=== PATIENT | male | born 1955 | race Caucasian/White ===

== ENCOUNTER 2017-05-27 13:06 | Inpatient (IN) | payer OTHER ==
[~2017-05-27] VITALS: Ht 177.8 cm; Wt 88.6 kg
--- NOTE | ~2017-05-27 | CR7 ---
[facility] A Service of [facility] & [facility] RADIOLOGY TEXT RESULTS PATIENT: JANEL CAMACHO LOCATION: [address] : 53 UNIT #: [id number] AGE: [address]: Eligio Nicholson MD SEX: M ORDER DR: [id number] [facility] [address]. [place], [place] [address] [id number] I MR#: [id number] Acc #: [id number] NAME: JANEL CAMACHO : 1955 SEX: M STUDY DATE/TIME: 05/29/2017 13:36 UNIT: [facility] ROOM: [facility] STUDY DESCRIPTION: CR Abdomen Single AP View Attending Physician: Eligio Nicholson M.D. Ordering Physician: Fred Rodriguez M.D. Primary Care Physician: Rocco Chamberlain M.D. MEDICAL IMAGING REPORT This report is preliminary unless electronic signature is present EXAM Portable KUB HISTORY Gastric distension. Nasogastric decompression. TECHNIQUE A single view of the abdomen was obtained. FINDINGS A Dobbhoff tube is seen coiled in the stomach in satisfactory position. The bowel gas pattern is normal. STAT * RESULT Dictated by... Vin Clark M.D. THIS IS AN ELECTRONICALLY VERIFIED REPORT Vin Clark M.D. at 05/30/2017 3:38 PM IMTIAZ/louis TD: 05/29/2017 14:13 JOB #: [id number] MEDICAL IMAGING REPORT Page 1 of 1 COPY
--- NOTE | ~2017-05-27 | EKG ---
PATIENT: JANEL CAMACHO UNIT #: [id number] Ventricular Rate: 62 BPM Atrial Rate: 62 BPM P-R Interval: 138 ms QRS Duration: 88 ms Q-T Interval: 464 ms QTC Calculation(Bezet): 470 ms P [place]: 10 degrees Calculated R Independence: 23 degrees Calculated T Independence: -36 degrees Diagnosis Line: Normal sinus rhythm Diagnosis Line: Normal ECG Diagnosis Line: When compared with ECG of 30-MAY-2017 06:25, Diagnosis Line: QT has shortened Diagnosis Line: Confirmed by IKE HAQUE MD ([id number]) on Diagnosis Line: 05/31/2017 9:55:39 AM INTERPRETING MD: SHABNAM LAURA
--- NOTE | ~2017-05-27 | EKG ---
PATIENT: JANEL CAMACHO UNIT #: [id number] Ventricular Rate: 61 BPM Atrial Rate: 61 BPM P-R Interval: 140 ms QRS Duration: 92 ms Q-T Interval: 438 ms QTC Calculation(Bezet): 440 ms P [place]: 56 degrees Calculated R [place]: 21 degrees Calculated T [place]: -54 degrees Diagnosis Line: Normal sinus rhythm Diagnosis Line: Low voltage QRS Diagnosis Line: Nonspecific T wave abnormality Diagnosis Line: Abnormal ECG Diagnosis Line: When compared with ECG of 31-MAY-2017 18:45, Diagnosis Line: (unconfirmed) Diagnosis Line: No significant change was found Diagnosis Line: Confirmed by IKE HAQUE MD ([id number]) on Diagnosis Line: 06/03/2017 8:55:01 AM INTERPRETING MD: SHABNAM LAUAR
--- NOTE | ~2017-05-27 | CR71 ---
[facility] A Service of [facility] RADIOLOGY TEXT RESULTS PATIENT: JANEL CAMACHO [facility] : 53 UNIT #: [id number] AGE: [address]: ADRIANE RODRIGUEZ MD SEX: M ORDER DR: [id number] [facility] [address] [place], [place] [address] [id number] I MR#: [id number] Acc #: [id number] NAME: JANEL CAMACHO : 1955 SEX: M STUDY DATE/TIME: 05/27/2017 13:37 UNIT: [facility] ROOM: [facility] STUDY DESCRIPTION: CR Chest Single View Attending Physician: Adriane Rodriguez M.D. Ordering Physician: Kaz Webber M.D. Primary Care Physician: Rocco Chamberlain M.D. MEDICAL IMAGING REPORT This report is preliminary unless electronic signature is present EXAM AP portable chest DATE 05/27/2017 at 13:37 HISTORY 61-year-old male intubated status post cardiac arrest today. COMPARISON None. FINDINGS Right chest wall transcutaneous pacer pad obscures the right mid to upper thorax. Hazy bilateral perihilar interstitial type infiltrates are thought to be present, and there is moderate cardiac enlargement. The endotracheal tube has been placed with tip projecting about 1.3 cm above the level of the kobi. No pneumothorax or pleural effusion is seen. IMPRESSION 1. Moderate generalized cardiac enlargement with faint perihilar interstitial type infiltrates or early interstitial edema. 2. ET tube tip 1.3 cm above the level of the kobi. Dictated by... Ierne Elliott M.D. THIS IS AN ELECTRONICALLY VERIFIED REPORT Irene Elliott M.D. at 05/28/2017 7:08 AM UNRULY/abisai [facility] A Service [facility] RADIOLOGY TEXT RESULTS PATIENT: JANEL CAMACHO [facility] : 53 UNIT #: [id number] AGE: [address]: ADRIANE RODRIGUEZ MD SEX: M ORDER DR: TD: 05/27/2017 23:02 JOB #: [id number] MEDICAL IMAGING REPORT Page 1 of 1 COPY
--- NOTE | ~2017-05-27 | OR ---
Unit #: [id number] #: [id number] Patient: JANEL CAMACHO [id number] [facility] [address]. [place], [place] [address] [id number] I MR#: [id number] NAME: JANEL CAMACHO ROOM: [facility] Date of Procedure: 05/27/2017 Admission Date: 05/27/2017 Surgeon: Charles Rodriguez M.D. : 1955 Attending Physician: Kandi Rodriguez M.D. Primary Care Physician: Rocco Chamberlain M.D. PROCEDURE OPERATIVE NOTE PROCEDURE Right radial arterial line placement with ultrasound guidance. INDICATION FOR PROCEDURE Status post cardiac arrest, needing hypothermia. PREOPERATIVE DIAGNOSIS Ventricular fibrillation arrest. DESCRIPTION OF THE PROCEDURE An informed consent was obtained from the family after explaining the benefit and risk of this procedure. Patient was prepped and positioned appropriately. Then the right arm was cleaned with chlorhexidine, then body drape was applied and, then with the ultrasound guidance, a needle was inserted in the right artery until blood flow was obtained. Then a guidewire was inserted and the needle was removed. Then the catheter was inserted over the guidewire. The catheter was connected to A-line setup and good wave was secured on the monitor. Patient tolerated his procedure well with no immediate complication. Dictated by... Charles Rodriguez M.D. EA/crystal TD: 05/27/2017 17:20 JOB #: [id number] PROCEDURE OPERATIVE NOTE Page 1 of 1 X CHARLES SIMONS MD X PROCEDURE OPERATIVE NOTE
--- NOTE | ~2017-05-27 | CT57 ---
[facility] A Service of [facility] & [facility] RADIOLOGY TEXT RESULTS PATIENT: JANEL CAMACHO LOCATION: [facility] 338-01 : 53 UNIT #: [id number] AGE: [address]: CARMEN LEMUSUJ V SEX: M ORDER DR: [id number] [facility] [address] [place], [place] [address] [id number] I MR#: [id number] Acc #: [id number] NAME: JANEL CAMACHO : 1955 SEX: M STUDY DATE/TIME: 06/02/2017 15:43 UNIT: A U ROOM: [facility] STUDY DESCRIPTION: CT Chest Wo Cont Attending Physician: Eligio Nicholson M.D. Ordering Physician: Muna Braden M.D. Primary Care Physician: Rocco Chamberlain M.D. MEDICAL IMAGING REPORT This report is preliminary unless electronic signature is present EXAM CT chest without contrast, 06/02/2017 HISTORY Acute respiratory failure. Short of air times 06/02/2017. Cardiac arrest 05/27/2017. Soreness in chest. Staph pneumonia. TECHNIQUE This CT exam was performed with one or more of the following radiation dose reduction techniques: automatic exposure control, adjustment of mA and/or kV according to patient size, and iterative reconstruction. FINDINGS CT chest performed without administration of intravenous contrast. No prior CTs of chest for comparison. Thyroid unremarkable. No axillary adenopathy. No mediastinal or hilar adenopathy. There is a right internal jugular approach central venous catheter which terminates in the superior vena cava. There are coronary arterial calcifications. Heart upper limits of normal in size. Small bilateral pleural effusions probably slightly greater on the right than left. Probably not drainable fluid collections. Visualized portions of the liver, gallbladder, spleen, pancreas, adrenal glands notable for hypodense 2.4 cm x 1.8 cm right adrenal nodule. Favored to be adenoma. Visualized upper renal poles unremarkable. No upper abdominal adenopathy. The esophagus, stomach, visualized segments of small bowel and colon notable for uncomplicated transverse colon diverticulosis. Pulmonary parenchyma shows evidence of underlying centrilobular emphysema. Dependent airspace disease in the bilateral lower lobes. More extensive on the left than right. Components of atelectasis and pneumonia may be present. Dependent atelectasis in the left inferior lingula segment. No suspicious nodule. Calcified granuloma in the right middle lobe lateral STS. [facility] A Service of [facility] & [facility] RADIOLOGY TEXT RESULTS PATIENT: JANEL CAMACHO LOCATION: [facility] 338-01 : 53 UNIT #: [id number] AGE: [address]: YASEMIN LEMUS V SEX: M ORDER DR: carlos. Unopacified vascular structures appear normal in overall caliber. Scattered systemic arterial calcifications. The bony structures show right anterior second, third, fourth, fifth, sixth rib fractures, some of which are very minimally displaced. There are left anterior third, fourth, fifth, sixth rib fractures, some of which are very minimally displaced. There is some haziness in the subcutaneous fat of the anterior chest superficial to the sternum. There are also left paracentral anterior fifth costochondral fracture and bilateral sixth anterior costochondral fractures nondisplaced. Haziness and stranding in the subcutaneous fat superficial to the sternum. The patient has a history of prior cardiac arrest 05/27/2017. Correlate with any history of cardiopulmonary resuscitation. Above pattern of bony and soft tissue findings suggests resuscitative chest compressions. IMPRESSION 1. Abnormal examination. Please see the complete dictation above for full details. Bibasilar airspace disease in the dependent lower lobes, left greater than right probably reflecting combination of atelectasis and bibasilar pneumonia. There are some very minimal subpleural patchy densities in the anterior mid to inferior left upper lobe which are nonspecific and may represent areas of minimal atelectasis or minimal pneumonitis. 2. Bilateral small pleural effusions. Probably not drainable fluid collections. Probably greater on the right than left. 3. Underlying emphysema. 4. No suspicious nodule and no adenopathy. 5. Multiple bilateral anterior rib fractures and costochondral fractures. See locations in body of report above. Associated subcutaneous fat stranding and haziness superficial to the anterior bony thorax. Patient has history of cardiac arrest. Findings most consistent with sequelae of cardiopulmonary resuscitation. Correlate clinically. 6. Transverse colon uncomplicated diverticulosis. 7. A 2.4 cm hypodense right adrenal nodule most consistent with adenoma. If it would assist in patient management, this could best be fully characterized with adrenal protocol MRI or CT on an elective basis. Dictated by... Isaías Nick M.D. THIS IS AN ELECTRONICALLY VERIFIED REPORT Isaías Nick M.D. at 06/03/2017 2:44 PM MARTIN/abisai TD: 06/03/2017 00:20 JOB #: [id number] MEDICAL IMAGING REPORT [facility] A Service of [facility] RADIOLOGY TEXT RESULTS PATIENT: JANEL CAMACHO LOCATION: [facility] 338-01 : 53 UNIT #: [id number] AGE: [address]: YASEMIN LEMUS V SEX: M ORDER DR: Page 1 of 1 COPY
--- NOTE | ~2017-05-27 | EKG ---
PATIENT: JANEL CAMACHO UNIT #: [id number] Ventricular Rate: 69 BPM Atrial Rate: 69 BPM P-R Interval: 142 ms QRS Duration: 88 ms Q-T Interval: 522 ms QTC Calculation(Bezet): 559 ms P [place]: 57 degrees Calculated R [place]: 23 degrees Diagnosis Line: Normal sinus rhythm Diagnosis Line: Low voltage QRS Diagnosis Line: Nonspecific ST and T wave abnormality Diagnosis Line: Prolonged QT Diagnosis Line: Abnormal ECG Diagnosis Line: When compared with ECG of 27-MAY-2017 17:55, Diagnosis Line: Premature ventricular complexes are no longer Diagnosis Line: Present Diagnosis Line: QT has lengthened Diagnosis Line: Confirmed by DONNY MCKINLEY MD ([id number]) on Diagnosis Line: 05/30/2017 3:53:16 PM INTERPRETING MD: RAFAEL
--- NOTE | ~2017-05-27 | FU ---
[facility] Nutrition Therapy DATE: 06/03/17 Patient: JANEL CAMACHO Physician: HOLLIS Address: [address] [place] [address] Room/Bed: [address] [place] [address], Zip: [place] [address] Admit Date: 05/27/17 Date of : 51 Height: 5 10 Weight: 216 98.4 NUTRITION MONITORING/FOLLOW-UP: Reason: Follow up Anthropometrics: Wt 06/03: 98.4 kg Labs: K+ 3.4 Cl- 92 BUN 28 Creat 1.8 Accuchecks 113-168 GFR 38.9 Meds: Levemir, KCl, lipitor, zofran, novolog, senokot, bumex, protonix I&O's: 82884/5804, last BM 06/02 Skin: no changes noted, no edema noted Diet: Heart healthy Assessment: Chart reviewed, events noted. Pt was extubated 06/01 and was transfered to tele floor. DHT was discontinued, and the pt is ordered a heart healthy diet. RD spoke with the pt at bedside. Pt is tolerating his diet, and consuming at least 50% of meals per his report. RD explained the pt's diet order, and the pt denied having any questions at this time. Please see recommendations below. Previous nutrition Dx no longer relevant, as the pt is now ordered a PO diet New Dx: Impaired glycemic control RT clinical condition AEB HgbA1C 5.7 on 05/28, accuchecks 113-168. Intervention: 1. Add 60 gm consistent carbohydrate diet restriction Monitoring, Evaluation and Goals: 1. EN- NO LONGER RELEVANT (TF D/C'D) 2. Improve labs; electrolytes, glucose- IN PROGRESS NEW GOALS: 1. Oral intake; consume 50-100% of meals Recommendations: 1. Add 60 gram consistent carbohydrate diet restriction to promote glycemic control. 2. Encourage adequate nutritional intake as needed. [facility] Nutrition Therapy DATE: 06/03/17 Patient: JANEL CAMACHO Physician: HOLLIS Address: [address] [place] [address] Room/Bed: [address] [place] [address], Zip: [place] [address] Admit Date: 05/27/17 Date of : [birth year] Height: 5 10 Weight: 216 98.4 Status: Pt is at mild nutritional risk. Respectfully, BREA PAULA RD, LD Food and Nutrition[facility] Services [facility] cc: client file
--- NOTE | ~2017-05-27 | CR72 ---
[facility] A Service of [facility] & [facility] RADIOLOGY TEXT RESULTS PATIENT: JANEL CAMACHO LOCATION: [address] : 53 UNIT #: [id number] AGE: [address]: Eligio Nicholson MD SEX: M ORDER DR: [id number] [facility] [address]. [place], [place] [address] [id number] I MR#: [id number] Acc #: [id number] NAME: JANEL CAMACHO : 1955 SEX: M STUDY DATE/TIME: 05/30/2017 6:19 UNIT: [facility] ROOM: [facility] STUDY DESCRIPTION: CR Chest Single View Portable Attending Physician: Eligio Nicholson M.D. Ordering Physician: Fred Rodriguez M.D. Primary Care Physician: Rocco Chamberlain M.D. MEDICAL IMAGING REPORT This report is preliminary unless electronic signature is present EXAM Frontal chest 05/30/2017 INDICATION Respiratory failure in a 62-year-old male. Status post cardiac arrest. Symptoms 3 days. History of prostatic and skin cancer and tobacco abuse. COPD. TECHNIQUE AND COMPARISON Frontal chest compared with 05/29/2017. FINDINGS ET tube tip in good position above the kobi. Right-sided central line unchanged. Enteric tube tip is at the level of the mid body stomach. The heart is enlarged but stable. Lung volumes are low but inspiratory result has improved slightly. Probable trace left effusion and left base atelectasis. No pneumothorax. IMPRESSION 1. Tubes and lines are in satisfactory position. Plfiw-sb-agqil left effusion and probable left base atelectasis. No pneumothorax. 2. Since the prior study, there has been interval removal of what appeared to represent a nasogastric tube and interval placement of a Dobbhoff-type feeding tube. Dictated by... Miko Valle M.D. THIS IS AN ELECTRONICALLY VERIFIED REPORT Miko Valle M.D. at 05/30/2017 5:12 PM KATHIE/yomi [facility] A Service of [facility] & [facility] RADIOLOGY TEXT RESULTS PATIENT: JANEL CAMACHO LOCATION: [facility]22 : 53 UNIT #: [id number] AGE: [address]: Eligio Nicholson MD SEX: M ORDER DR: TD: 05/30/2017 08:28 JOB #: [id number] MEDICAL IMAGING REPORT Page 1 of 1 COPY
--- NOTE | ~2017-05-27 | CR72 ---
[facility] A Service of [facility] RADIOLOGY TEXT RESULTS PATIENT: JANEL CAMACHO LOCATION: [facility] : 53 UNIT #: [id number] AGE: [address]: Eligio Nicholson MD SEX: M ORDER DR: [id number] [facility] [address] [place], [place] [address] [id number] I MR#: [id number] Acc #: [id number] NAME: JANEL CAMACHO : 1955 SEX: M STUDY DATE/TIME: 05/29/2017 13:33 UNIT: [facility] ROOM: [facility] STUDY DESCRIPTION: CR Chest Single View Portable Attending Physician: Eligio Nicholson M.D. Ordering Physician: Fred Rodriguez M.D. Primary Care Physician: Rocco Chamberlain M.D. MEDICAL IMAGING REPORT This report is preliminary unless electronic signature is present EXAM Portable chest HISTORY Respiratory failure TECHNIQUE Single view chest was obtained. COMPARISON 05/29/2017 FINDINGS Since the previous examination no new infiltrates are seen. The heart and mediastinum are stable. A Dobbhoff tube is seen over the distal esophagus. A nasogastric tube is seen coiled in the stomach. The endotracheal tube tip is in good position. IMPRESSION Dobbhoff tube in the esophagus. No new infiltrates are seen since the previous examination earlier in the day. STAT * RESULT Dictated by... Vin Clark M.D. THIS IS AN ELECTRONICALLY VERIFIED REPORT Vin Clark M.D. at 05/30/2017 3:38 PM IMTIAZ/minoo TD: 05/29/2017 14:10 [facility] A Service of [facility] RADIOLOGY TEXT RESULTS PATIENT: JANEL CAMACHO LOCATION: [facility] : 53 UNIT #: [id number] AGE: [address]: Eligio Nicholson MD SEX: M ORDER DR: JOB #: [id number] MEDICAL IMAGING REPORT Page 1 of 1 COPY
--- NOTE | ~2017-05-27 | CR72 ---
[facility] A Service of [facility] & [facility] RADIOLOGY TEXT RESULTS PATIENT: JANEL CAMACHO LOCATION: [address] : 53 UNIT #: [id number] AGE: [address]: Eligio Nicholson MD SEX: M ORDER DR: [id number] [facility] [address] [facility]. [place], [place] [address] [id number] I MR#: [id number] Acc #: [id number] NAME: JANEL CAMACHO : 1955 SEX: M STUDY DATE/TIME: 05/31/2017 6:00 UNIT: [facility] ROOM: [facility] STUDY DESCRIPTION: CR Chest Single View Portable Attending Physician: Eligio Nicholson M.D. Ordering Physician: Fred Rodriguez M.D. Primary Care Physician: Rocco Chamberlain M.D. MEDICAL IMAGING REPORT This report is preliminary unless electronic signature is present EXAM Portable chest 05/31/2017 HISTORY 62-year-old male with shortness of air and respiratory failure for 4 days. COMPARISON Chest 05/30/2017. FINDINGS Frontal chest demonstrates tubes and lines in stable position. No pneumothorax. Stable trace left pleural effusion and minimal left basilar atelectasis. No new pulmonary infiltrates. Heart size and mediastinum are stable. IMPRESSION 1. Tubes and lines are stable. No pneumothorax. 2. Stable trace left pleural effusion and minimal left basilar atelectasis. Dictated by... Kwasi Paz M.D. THIS IS AN ELECTRONICALLY VERIFIED REPORT Kwasi Paz M.D. at 05/31/2017 12:15 PM AV/louis TD: 05/31/2017 07:16 JOB #: [id number] MEDICAL IMAGING REPORT Page 1 of 1 COPY
--- NOTE | ~2017-05-27 | TOC ---
Unit #: [id number] #: [id number] Patient: JANEL CAMACHO [id number] [facility] [address]. [place], [place] [address] [id number] I MR#: [id number] NAME: JANEL CAMACHO ROOM: [facility] Age: 62 Sex: M Admission Date: 05/27/2017 : 1955 Attending Physician: Eligio Nicholson M.D. Primary Care Physician: Rocco Chamberlain M.D. TRANSFER OF CARE SUMMARY DISCHARGE DIAGNOSES AT TIME OF DICTATION 1. Ventricular tachycardia arrest. 2. Coronary artery disease, status post three stents to the right coronary artery. 3. Aspiration pneumonia. 4. Septic shock. 5. Chronic obstructive pulmonary disease. 6. Acute kidney injury from acute tubular necrosis. 7. Hypoxic respiratory failure. 8. Metabolic acidosis. HOSPITAL COURSE Patient is a 62-year-old male who was brought to [facility] emergency department after a witnessed cardiac arrest. CPR was done immediately by family, after which point the fire department arrived and participated until EMS arrived. The patient reportedly received multiple shocks prior to reaching the emergency department. The patient was ultimately admitted for the above after being started on hypothermia protocol in the emergency department. The patient's ventilator was managed by Pulmonary and plans were made to take the patient for cardiac cath once he was extubated. He was noted to have some mild acute kidney injury upon presentation which worsened over the next several days. The patient was in process of being weaned as planned prior to cath when he began to have chest pain and cardiac changes visible on telemetry. As a result the wean was stopped and the patient was resedated. It was then decided to take the patient cath prior to weaning despite some mild kidney injury. At cath, patient was noted to have multiple areas of 90+% stenosis of the RCA which were stented x3. After this, the patient was able to be weaned from the ventilator without incident the following day. Over the course of the hospitalization, the patient was also noted to have pneumonia and the patient's procalcitonin came back at 7.6. Ultimately sputum cultures have grown methicillin-susceptible Staph aureus and the patient has now completed a course of Zosyn. At this time the patient is awake, alert and feeling well. He is being transferred from ICU to a monitored bed at this time. His creatinine remains mildly elevated at 2.1. His urine output has dramatically increased, at the time of this dictation having produced over 10 L of urine today. I anticipate the patient's serum creatinine will begin to Unit #: [id number] #: [id number] Patient: JANEL CAMACHO in short order. Dictated by... Eligio Nicholson M.D. GURINDER/crystal TD: 06/02/2017 19:19 JOB #: [id number] TRANSFER OF CARE SUMMARY Page 1 of 1 X Eligio Nicholson MD X TRANSFER OF CARE SUMMARY
--- NOTE | ~2017-05-27 | A ---
[facility] Nutrition Therapy DATE: 05/28/17 Patient: JANEL CAMACHO Physician: HOLLIS Address: [address] [place] [address] Room/Bed: [address], Zip: [place] [address] Admit Date: 05/27/17 Date of : 51 Height: 5 10 Weight: 217 98.5 NUTRITIONAL ASSESSMENT: REASON: NPO in ICU, intubated Admitting dx: 61 y/o male admitted with cardiac arrest PMH: 2 ppd smoker, 6-8 beers/daily, CAD s/p stent x 2, HTN, HLD, COPD, ANA LUISA, prostate cancer Anthropometrics: Ht: 70", Wt: 98.5 kg, BMI: 30 (stage I obese) Labs: K+ 3.4, glucose 302, POC 260, Creat 1.8, AST 68, ALT 56, A1C 5.7 (WNL), GFR 39.2, triglycerides 539 Meds: Levemir, medium SSI, EPI, fentanyl/versed, Kcl, Lipitor I/O & Bowel function: BM 05/27, NGT in place Skin Integrity: No significant issues, no edema Estimated Nutrition Needs: 8222-1854 kcals/day (17-22 kcals/kg) 79-99 g protein/day (0.8-1.0 g/kg) Fluids consistent with kcal needs or per MD Assessment: Chart reviewed, events noted. Patient currently intubated, sedated and therapeutically paralyzed on hypothermia protocol, rewarming has not been started yet. He is having bradycardia episodes, on 1 pressor at this time. Hyperglycemia noted- on insulin regimen- does not have hx of DM and A1C is normal. Pt drinks 6-8 beers daily and smokes [address] recs below, will follow hospital course. Dx: Inadequate energy intake r/t nutrition not yet initiated AEB NPO x 1 day, need for EN. Intervention: Initiate enteral nutrition once appropriate, lyte replacement, insulin reg Monitoring, Evaluation and Goals: 1. EN consistent with estimated nutritional needs. 2. Improvement in labs; lytes WNL, glucose < 200, triglycerides < 400. Monitor: Per protocol, criteria to determine if above goals met Recommendations: [facility] Nutrition Therapy DATE: 05/28/17 Patient: JANEL CAMACHO Physician: HOLLIS Address: [address] [place] [address] Room/Bed: [address], Zip: [place] [address] Admit Date: 05/27/17 Date of : [birth year] Height: 5 10 Weight: 217 98.5 1. Once re-warming phase of hypothermia protocol has been initiated and the patient is hemodynamically stable start enteral nutrition with Jevity 1.5 @ 20 ml/hr. Increase rate by 10 ml q 8 hours until goal rate of 60 ml/hr is reached, to provide 1440 ml, 2160 kcals, 92 g protein and 1094 ml water. Free water flushes per MD once at goal rate. 2. Replace lytes prn. 3. Optimize insulin regimen to promote adequate blood glucose control. RD will follow Moderate-severe nutrition risk Respectfully, Britney Herring, SHRADDHA, LD Food and Nutritional Services [facility] cc: client file
--- NOTE | ~2017-05-27 | EKG ---
PATIENT: JNAEL CAMACHO UNIT #: [id number] Ventricular Rate: 64 BPM Atrial Rate: 64 BPM P-R Interval: 142 ms QRS Duration: 88 ms Q-T Interval: 424 ms QTC Calculation(Bezet): 437 ms P [place]: 57 degrees Calculated R [place]: 10 degrees Calculated T [place]: -13 degrees Diagnosis Line: Normal sinus rhythm Diagnosis Line: Low voltage QRS Diagnosis Line: Borderline ECG Diagnosis Line: When compared with ECG of 31-MAY-2017 10:29, Diagnosis Line: Premature ventricular complexes are no longer Diagnosis Line: Present Diagnosis Line: QT has shortened Diagnosis Line: Confirmed by IKE HAQUE MD ([id number]) on Diagnosis Line: 06/03/2017 8:53:11 AM INTERPRETING MD: SHABNAM LAURA
--- NOTE | ~2017-05-27 | EKG ---
PATIENT: JANEL CAMACHO UNIT #: [id number] Ventricular Rate: 81 BPM Atrial Rate: 79 BPM QRS Duration: 152 ms Q-T Interval: 426 ms QTC Calculation(Bezet): 494 ms Calculated R [place]: -80 degrees Calculated T [place]: 84 degrees Diagnosis Line: Wide QRS rhythm with occasional Premature Diagnosis Line: ventricular complexes Diagnosis Line: Left axis deviation Diagnosis Line: Right bundle branch block Diagnosis Line: Inferior infarct , age undetermined Diagnosis Line: Abnormal ECG Diagnosis Line: No previous ECGs available Diagnosis Line: Confirmed by KRISTAN VENEGAS MD ([id number]) on Diagnosis Line: 05/28/2017 5:05:45 PM INTERPRETING MD: THEO LAURA
--- NOTE | ~2017-05-27 | CO ---
Unit #: [id number] #: [id number] Patient: JANEL CAMACHO [id number] [facility]. [place], [place] [address] [id number] MR#: [id number] NAME: JANEL CAMACHO ROOM: Age: 61 Sex: M Admission Date: 05/27/2017 : 1955 Attending Physician: Kaz Webber M.D. Primary Care Physician: Rocco Chamberlain M.D. Consultation Date: 05/27/2017 CONSULTATION REPORT REASON FOR CONSULT ICU management. HISTORY OF PRESENT ILLNESS This is a 61-year-old male with past medical history significant for coronary artery disease, hypertension, obstructive sleep apnea, morbid obesity who presented to the emergency room as a cardiac arrest after he had a witnessed arrest at home. Per his , patient was at his baseline with no new complaint; however, patient normally does not complain even if there is something going on. stated that he went to the bedroom to lay down which is something normal for him and then all of a sudden his granddaughter came out stating that he fell and he was not responsive. The immediately called EMS and she started CPR with hsrjk-iw-[id number] ventilation. EMS arrived within probably 15 minutes and found patient to be in ventricular fibrillation arrest. Patient was resuscitated and shocked 10-12 times between the ambulance and in the emergency room. The patient was difficult intubation and was intubated by the ER physician. Currently, he is not following commands, but he is moving some of his extremities. Patient has prostate cancer and he finished his radiation therapy 10 months ago. He follows with his doctors once a year. Per his family, he had a stress test that was normal a year ago. Patient had a left heart cath many years ago and had two stents placed, but he never had a CABG. PAST MEDICAL HISTORY 1. COPD. 2. Coronary artery disease. 3. Hypertension. 4. Obstructive sleep apnea. 5. Prostate cancer. PAST SURGICAL HISTORY 1. Sinus surgery. 2. Stent placement. ALLERGIES No known drug allergies. SOCIAL HISTORY Patient smokes at least two packs per day. He smokes for probably 30 years. He drinks six to eight beers daily, but no history of DTs. No history of drug abuse. FAMILY HISTORY Unit #: [id number] #: [id number] Patient: JANEL CAMACHO Skin cancer. REVIEW OF SYSTEMS Unable to obtain from the patient. PHYSICAL EXAMINATION GENERAL: The patient is ill-appearing on the ventilator. HEENT: Atraumatic, normocephalic. Pupils are 4 mm and reactive. Patient has gag and cough reflexes. NECK: Supple. No JVD. No lymphadenopathy. CHEST: Decreased breath sounds bilaterally with diffuse wheezing. HEART: S1, S2. No murmur, gallops, or rubs. ABDOMEN: Distended but nontender. EXTREMITIES: No edema or cyanosis. SKIN: No rashes. CENTRAL NERVOUS SYSTEM: Patient is on the ventilator. He is moving his upper extremity to painful stimuli, but he is not following commands. DIAGNOSTIC STUDIES LABORATORY: Creatinine 1.4, potassium 3.1, CO2 of 20. White blood count 9.2, platelets 118,000. IMAGING: Chest x-ray: Bilateral infiltrate. ASSESSMENT 1. Acute hypoxic respiratory failure. 2. Status post ventricular fibrillation/ventricular tachycardia cardiac arrest. 3. Acute kidney injury. 4. Chronic obstructive pulmonary disease. 5. Hypertension. 6. Coronary artery disease. PLAN 1. Patient is critical. Will continue vent support and adjust setting as needed. 2. Will obtain STAT CT head and if it is normal, we will enroll patient in hyperthermia protocol. 3. Zosyn for possible aspiration pneumonia. 4. Continue IV hydration and obtain lactic acid. 5. Full treatment Lovenox dose. 6. NPO for now but will re-assess for tube feed in the morning. 7. Gastrointestinal prophylaxis. Critical care time spent on this patient was 45 minutes. Dictated by... Debi Urbina TD: 05/27/2017 15:22 JOB #: [id number] Unit #: [id number] #: [id number] Patient: JANEL CAMACHO CONSULTATION REPORT Page 1 of 1 X CHARLES SIMONS MD CONSULTATION REPORT
--- NOTE | ~2017-05-27 | HP ---
Unit #: [id number] #: [id number] Patient: JANEL CAMACHO [id number] [address] [id number] I MR#: [id number] NAME: JANEL CAMACHO ROOM: CICCU3 Age: 61 Sex: M Admission Date: 05/27/2017 : 1955 Attending Physician: Adriane Rodriguez M.D. Primary Care Physician: Rocco Chamberlain M.D. HISTORY AND PHYSICAL CHIEF COMPLAINT Cardiac arrest. HISTORY OF PRESENT ILLNESS The patient is a 61-year-old white male with a past medical history of coronary artery disease, status post stents x2, hypertension, hyperlipidemia, obstructive sleep apnea, COPD, prostate cancer, had a witnessed arrest early this morning. The patient was going to the bed for a nap at 11:30. The patient had a fall. The patient was becoming very confused and unresponsive. The patient was started on CPR by the [facility] and the fire department came in and continued the CPR until the ambulance came. The patient was found to be in v-fib/v-tach. The patient received multiple shocks, total of 11 and patient was on and off for v-fib with tach for the last two hours and patient achieved ROSC. Patient is being admitted for the above reasons. Patient is unable to provide any history and the family history is obtained by the patient's family at the bedside. No further history is available. PAST MEDICAL HISTORY History of a COPD, obstructive sleep apnea, coronary artery disease, hypertension, hyperlipidemia and history of prostate cancer. PAST SURGICAL HISTORY Angioplasty, stents and skin carcinoma removed. HOME MEDICATION Patient is on Lovaza, ramipril, Diovan, Crestor, metoprolol, aspirin, Tylenol with codeine. ALLERGIES No known drug allergies. SOCIAL HISTORY Lives with the family, smokes one to one and a half packs per day, denies any alcohol or any illicit drug abuse. FAMILY HISTORY Positive for a skin cancer. REVIEW OF SYMPTOMS Unable to obtain as patient is being intubated. PHYSICAL EXAMINATION Unit #: [id number] #: [id number] Patient: JANEL CAMACHO GENERAL APPEARANCE: On examination the patient is lying on a bed, not in acute distress. Patient is ill-appearing, on the ventilator. VITAL SIGNS: Temperature is 98.5, pulse 177, respiratory rate is 20, blood pressure 145/90, sating 99% on vent. HEENT: Head atraumatic/normocephalic. Pupils constricted. Minimal reaction . NECK: Status post orotracheal intubation. LUNGS: Decreased air entry at the bases. Positive for wheezing and rhonchi. HEART: Regular rhythm, tachycardic. ABDOMEN: Distended. EXTREMITIES: No cyanosis. No clubbing. NEUROLOGIC: Unable to assess. The patient is on vent and sedation. DIAGNOSTIC STUDIES LABORATORY DATA: WBC 9.2, hemoglobin 15.8, hematocrit 47.3, platelets 118. UA shows 3+ protein and urine WBC 10 and 25 to 50 glucose. Sodium 140, potassium 3.1, chloride 104, bicarb 20, glucose 366, creatinine 1.5, AST 68, ALT 56. INR is 1. Troponin less than 0.05. Urine drug screen is negative. ABG shows pH of 7.1, pCO2 46, pO2 101, bicarb 16.1. CARDIOPULMONARY: EKG shows wide complex QRS rhythm with the PVCs, right bundle-branch block and left axis deviation. ASSESSMENT 1. Status post witnessed cardiac arrest. 2. Acute hypoxic respiratory failure. 3. Status post ventricular fibrillation/ventricular tachycardia cardiac arrest. 4. Acute kidney injury. 5. Chronic obstructive pulmonary disease. 6. Septic shock. PLAN Plan to admit the patient to the inpatient with the telemetry. Continue with the weaning protocol. Check the CT of the head and if the CT of the head is negative patient will be on the hypothermia protocol. Continue IV antibiotics. Check the lactic acid. Patient has a poor prognosis. Follow with the cardiology and critical care. Continue with the septic shock protocol and further recommendations will follow as more lab results are available. Dictated by Debi Casey TD: 05/27/2017 17:27 JOB #: [id number] Unit #: [id number] #: [id number] Patient: JANEL CAMACHO HISTORY AND PHYSICAL Page 1 of 1 X ADRIANE RODRIGUEZ MD X HISTORY AND PHYSICAL
--- NOTE | ~2017-05-27 | FU ---
[facility] Nutrition Therapy DATE: 05/30/17 Patient: JANEL CAMACHO Physician: HOLLIS Address: [address] [place] [address] Room/Bed: [address], Zip: [place] [address] Admit Date: 05/27/17 Date of : [birth year] Height: 5 10 Weight: 222 101 NUTRITION MONITORING/FOLLOW-UP: Reason: Enteral nutrition follow-up 61 y/o male admitted for cardiac arrest Anthropometrics: ht: 5'10" wt: 222# (101 kg) BMI 31 Labs: Glu 169, Accuchecks 54-207, Creat 2.1, a++ 7.0, Alb 2.8, AST 149, ALT 131, GFR 32.3 Meds: versed, fentanyl, dopamine, levemir, zosyn, KCl, Dextrose 5%, lipitor, lovenox, novolog I&O's: 5138/1630. BM 05/27 Skin: No issues, no edema. Estimated Nutrition Needs: 4862-3910 kcal (17-22 kcal/kg) 76-99 g protein (0.8-1.0 g/kg) Fluids consistent with kcal needs or per MD Assessment: Chart reviewed, events noted. Pt continues to be intubated and unresponsive. Pt has been assesed by AKIKO. The pt has began to receive enteral nutrition support of Jevity 1.5 @ 40 mL (382 mL x past 24 hours, 26% goal volume). Pt's weight has remained stable at this time. RD will continue to follow. Dx: Inadequate energy intake r/t nutrition not initiated yet AEB NPO x 1 day, need for EN -RESOLVED New Dx: Inadequate energy intake r/t enteral nutrition not at goal AEB pt receiving 26% goal volume Intervention: 1. Enteral nutrition Monitoring, Evaluation and Goals: 1. EN consistent with estimated nutritional needs -NOT MET/IN PROGRESS 2. Improvement in labs; lytes WNL, glucose <200, trig <400 -IN PROGRESS, IMPROVING Recommendations: 1. Increase enteral nutrition support of Jevity 1.5 by 10 mL q 8 hours to goal rate of 60 mL/hr x 24 hours. This provides 1440 mL, 2160 kcal, 92 g protein, and 1094 mL water. free [facility] Nutrition Therapy DATE: 05/30/17 Patient: JANEL CAMACHO Physician: HOLLIS Address: [address] [place] [address] Room/Bed: [address], Zip: [place] [address] Admit Date: 05/27/17 Date of : [birth year] Height: 5 10 Weight: 222 101 water flushes per MD once at goal rate. 2. Continue to optimize insulin to promote adequate blood glucose control. RD will f/u per protocol as pt is at moderate nutritional risk. Respectfully, Shama Winter, Cutter Head Sharpener Britney Herring RD, LD Food and Nutritional Services [facility] cc: client file
--- NOTE | ~2017-05-27 | CT71 ---
[facility] A Service of [facility] RADIOLOGY TEXT RESULTS PATIENT: JAENL CAMACHO LOCATION: [facility] : [birth year] UNIT #: [id number] AGE: [address]: Eligio Nicholson MD SEX: M ORDER DR: [id number] [facility]. [place], [place] [address] [id number] I MR#: [id number] Acc #: [id number] NAME: JANEL CAMACHO : 1955 SEX: M STUDY DATE/TIME: 05/27/2017 16:23 UNIT: [facility] ROOM: [facility] STUDY DESCRIPTION: CT Head Wo Contrast Attending Physician: Eligio Nicholson M.D. Ordering Physician: Kaz Webber M.D. Primary Care Physician: Rocco Chamberlain M.D. MEDICAL IMAGING REPORT This report is preliminary unless electronic signature is present EXAM CT head without contrast 05/27/2017 HISTORY 61-year-old male with altered mental status today. Unresponsive. Status post cardiac arrest. Comparison none. TECHNIQUE Routine unenhanced axial images performed through the brain. This CT exam was performed with one or more of the following radiation dose reduction techniques: automatic exposure control, adjustment of mA and/or kV according to patient size, and iterative reconstruction. FINDINGS No hemorrhage, acute infarction, mass lesion, or abnormal extraaxial fluid collection. No midline shift or focal mass effect. Ventricular system normal in size and configuration. No acute bony abnormality. Visualized paranasal sinuses and mastoid air cells are clear. IMPRESSION No acute intracranial abnormality. Dictated by... Kwasi Paz M.D. THIS IS AN ELECTRONICALLY VERIFIED REPORT Kwasi Paz M.D. at 05/28/2017 11:47 AM AV/milagros TD: 05/28/2017 08:20 JOB #: [id number] [facility] A Service [facility] RADIOLOGY TEXT RESULTS PATIENT: JANEL CAMACHO LOCATION: [facility] : 53 UNIT #: [id number] AGE: [address]: Eligio Nicholson MD SEX: M ORDER DR: MEDICAL IMAGING REPORT Page 1 of 1 COPY
--- NOTE | ~2017-05-27 | EKG ---
PATIENT: JANEL CAMACHO UNIT #: [id number] Ventricular Rate: 97 BPM Atrial Rate: 97 BPM P-R Interval: 156 ms QRS Duration: 98 ms Q-T Interval: 378 ms QTC Calculation(Bezet): 480 ms P [place]: 62 degrees Calculated R [place]: 29 degrees Calculated T [place]: -115 degrees Diagnosis Line: Sinus rhythm with occasional Premature ventricular Diagnosis Line: complexes Diagnosis Line: ST and T wave abnormality, consider inferior Diagnosis Line: ischemia Diagnosis Line: Prolonged QT Diagnosis Line: Abnormal ECG Diagnosis Line: Diagnosis Line: Confirmed by KRISTAN VENEGAS MD ([id number]) on Diagnosis Line: 05/28/2017 5:07:14 PM INTERPRETING MD: THEO LAURA
--- NOTE | ~2017-05-27 | CR72 ---
[facility] A Service of [facility] RADIOLOGY TEXT RESULTS PATIENT: JANEL CAMACHO LOCATION: [address] : [birth year] UNIT #: [id number] AGE: [address]: Eligio Nicholson MD SEX: M ORDER DR: [id number] [facility] [address] [place], [place] [address] [id number] I MR#: [id number] Acc #: [id number] NAME: JANEL CAMACHO : 1955 SEX: M STUDY DATE/TIME: 05/27/2017 14:38 UNIT: [facility] ROOM: [facility] STUDY DESCRIPTION: CR Chest Single View Portable Attending Physician: Kandi Rodriguez M.D. Ordering Physician: Kaz Webber M.D. Primary Care Physician: Rocco Chamberlain M.D. MEDICAL IMAGING REPORT This report is preliminary unless electronic signature is present EXAM Portable chest x-ray 05/27/2017 HISTORY Post central line. FINDINGS AP radiograph of the chest is presented. Comparison from earlier on same date. Interval placement of right internal jugular central venous catheter which terminates in superior vena cava. Endotracheal tube terminates 2.5 cm above kobi. Stable mild cardiac enlargement. Lung volumes improved. Decreased central bronchovascular crowding. Decreased interstitial and airspace densities in perihilar regions extending toward the periphery. The parenchymal findings are more pronounced on left than right. These may reflect components of both bilateral perihilar pneumonia and central edema. No pleural effusion or pneumothorax. No suspicious nodule. Continued followup to resolution recommended. Dictated by... Isaías Nick M.D. THIS IS AN ELECTRONICALLY VERIFIED REPORT Isaías Nick M.D. at 05/28/2017 6:52 PM MARTIN/louis TD: 05/28/2017 07:00 JOB #: [id number] MEDICAL IMAGING REPORT Page 1 of 1 COPY
--- NOTE | ~2017-05-27 | CR72 ---
[facility] A Service of [facility] RADIOLOGY TEXT RESULTS PATIENT: JANEL CAMACHO LOCATION: [facility] : 53 UNIT #: [id number] AGE: [address]: Eligio Nicholson MD SEX: M ORDER DR: [id number] [facility] [address] [place], [place] [address] [id number] I MR#: [id number] Acc #: [id number] NAME: JANEL CAMACHO : 1955 SEX: M STUDY DATE/TIME: 06/01/2017 5:12 UNIT: [facility] ROOM: [facility] STUDY DESCRIPTION: CR Chest Single View Portable Attending Physician: Eligio Nicholson M.D. Ordering Physician: Fred Rodriguez M.D. Primary Care Physician: Rocco Chamberlain M.D. MEDICAL IMAGING REPORT This report is preliminary unless electronic signature is present EXAMINATION AP portable chest. DATE 06/01/2017 at 05:12. HISTORY Shortness breath with respiratory failure, weakness. Symptoms began 05/27/2017. Additional history of atrial fibrillation, prostate cancer. Hypertension. COMPARISON AP portable chest, 05/31/2017, at 06:00. FINDINGS Small left pleural effusion with mild left basilar atelectasis without significant change. Right lung appears clear. Heart size is upper limits of normal but stable. ET tube, enteric tube, right IJ central line appear unchanged. No pneumothorax is visible. IMPRESSION 1. Small left pleural effusion with probable mild left basilar atelectasis, stable. 2. Supporting lines and tubes appear unchanged. 3. No significant change from 05/31/2017. Dictated by... Irene Elliott M.D. THIS IS AN ELECTRONICALLY VERIFIED REPORT Irene Elliott M.D. at 06/01/2017 9:41 PM [facility] A Service of [facility] RADIOLOGY TEXT RESULTS PATIENT: JANEL CAMACHO LOCATION: [facility] : 53 UNIT #: [id number] AGE: [address]: Eligio Nicholson MD SEX: M ORDER DR: TD: 06/01/2017 20:39 JOB #: [id number] MEDICAL IMAGING REPORT Page 1 of 1 COPY
--- NOTE | ~2017-05-27 | CO ---
Unit #: [id number] #: [id number] Patient: JANEL CAMACHO [id number] [id number] [facility] [place] [facility]. [place], [place] [address] [id number] I MR#: [id number] NAME: JANEL CAMACHO ROOM: CIC3 Age: 62 Sex: M Admission Date: 05/27/2017 : 1955 Attending Physician: Eligio Nicholson M.D. Primary Care Physician: Rocco Chamberlain M.D. Consultation Date: 05/27/2017 CONSULTATION REPORT REASON FOR CONSULTATION Status post cardiac arrest. HISTORY OF PRESENT ILLNESS This is a 61-year-old male with a prior history of coronary artery disease, status post stents x2. He is a patient of Dr. Conrad. He also has a history of hypertension, hyperlipidemia, obstructive sleep apnea, COPD, and prostate cancer. He is currently intubated and unresponsive on the vent. He is unable to answer questions. The majority of this information was obtained from chart review and per his family. According to his , he went to lay down. The family heard a loud noise and went to check on him. He was lying on the ground, gurgling, and struggling to breathe. His CPR and EMS was called. When EMS arrived, he was shocked 11 times prior to his arrival in ER. He was in VFib and V-tach off and on for approximately 2 hours. In the ER, return of spontaneous circulation was achieved. Currently, he is on an amiodarone drip and intubated. CT of the head was also pending and then hypothermia will be started. PAST MEDICAL HISTORY 1. Coronary artery disease, status post stents x2, details are currently unavailable. 2. Hypertension. 3. Hyperlipidemia. 4. Obstructive sleep apnea. 5. COPD. 6. Prostate cancer, finished radiation treatment in October 2016. 7. Stress test in 2016 reportedly normal (those results are not currently available). PAST SURGICAL HISTORY 1. Cardiac cath with angioplasty and stents. 2. Skin cancer removed. SOCIAL HISTORY The patient lives with his . He smokes 1 pack per day for 30 years. According to his , he drinks 6 to 7 beers per night. She denies illicit drug use. states he is fairly active as they just went camping for the weekend. He was able to hike and ambulate without complaints of chest pain or chest discomfort. ALLERGIES No known drug allergies. Unit #: [id number] #: [id number] Patient: JANEL CAMACHO HOME MEDICATIONS Crestor, ramipril, metoprolol, losartan, aspirin. REVIEW OF SYSTEMS Unable to obtain due to the patient intubated and unresponsive on the vent. PHYSICAL EXAMINATION VITAL SIGNS: Temperature 98.5, heart rate 78, blood pressure 145/92, 107/77, O2 saturation 99%. GENERAL: A 61-year-old male, lying in bed, in no acute distress. He is ill appearing on the ventilator. HEENT: Head is atraumatic and normocephalic. Pupils are constricted. NECK: Supple. Trachea is midline. Negative for JVD. LUNGS: Clear, decreased in bases. Nonlabored respirations on the ventilator. HEART: S1, S2. Regular rate and rhythm. No murmurs, rubs, or gallops. ABDOMEN: Soft, nontender, nondistended. EXTREMITIES: Pulses are palpable. Nail beds are pale. No edema. NEUROLOGIC: Intubated and unresponsive. Status post arrest. DIAGNOSTIC STUDIES LABORATORY RESULTS: Sodium 140, potassium 3.1, chloride 104, BUN 19, creatinine 1.5, glucose 366. Hemoglobin 15.8, hematocrit 47.3, white blood cell count 9.2, platelets 118. AST 68, ALT 56, alkaline phosphatase 43. Nvwbs-sk-faff troponin less than 0.05. Urine tox screen negative. IMAGING STUDIES: Chest x-ray shows moderate generalized cardiac enlargement with faint perihilar interstitial type infiltrate or early interstitial edema. CT of the head is pending. CARDIOVASCULAR STUDIES: EKG shows sinus rhythm with right bundle-branch block and occasional PVCs, ventricular rate of 81. ASSESSMENT 1. Status post cardiac arrest with ventricular fibrillation, ventricular tachycardia. 2. Coronary artery disease, status post stents x2, records not available. 3. Hypertension. 4. Hyperlipidemia. 5. Obstructive sleep apnea. 6. Chronic obstructive pulmonary disease. 7. History of prostate cancer. 8. Tobacco abuse. 9. Acute kidney injury. PLAN We will trend enzymes. Check an echocardiogram. Add Lovenox, pending CT results. Check fasting lipid profile, TSH, and hemoglobin A1c. Decrease amiodarone drip to 0.5 mg per minute after 6 hours. Obtain records from office. CT of the head and if it is negative, he will begun on hypothermia protocol. Thank you for asking us to see this patient. We will continue to follow along. Dictated by... Unit #: [id number] #: [id number] Patient: JANEL CAMACHO APRN RB/rita TD: 05/29/2017 09:01 JOB #: [id number] CONSULTATION REPORT Page 1 of 1 X X CONSULTATION REPORT
--- NOTE | ~2017-05-27 | EKG ---
PATIENT: JANEL CAMACHO UNIT #: [id number] Ventricular Rate: 80 BPM Atrial Rate: 80 BPM P-R Interval: 138 ms QRS Duration: 102 ms Q-T Interval: 420 ms QTC Calculation(Bezet): 484 ms P [place]: 65 degrees Calculated R [place]: 5 degrees Calculated T [place]: -31 degrees Diagnosis Line: Sinus rhythm with occasional Premature ventricular Diagnosis Line: complexes Diagnosis Line: Nonspecific ST abnormality Diagnosis Line: Prolonged QT Diagnosis Line: Abnormal ECG Diagnosis Line: When compared with ECG of 31-MAY-2017 06:22, Diagnosis Line: Premature ventricular complexes are now Present Diagnosis Line: Confirmed by IKE HAQUE MD ([id number]) on Diagnosis Line: 05/31/2017 2:47:09 PM INTERPRETING MD: SHABNAM LAURA
--- NOTE | ~2017-05-27 | DS ---
Unit #: [id number] #: [id number] Patient: JANEL CAMACHO [id number] [facility] [address] [facility]. [place], [place] [address] [id number] I MR#: [id number] NAME: JANEL CAMACHO ROOM: 338 Age: 62 Sex: M Admission Date: 05/27/2017 : 1955 Discharge Date: 06/04/2017 Attending Physician: Bernabe Kim M.D. Primary Care Physician: Rocco Chamberlain M.D. DISCHARGE SUMMARY DISCHARGE DIAGNOSES 1. Ventricular tachycardic arrest. 2. Coronary artery disease, status post three stents to the right coronary artery. 3. Aspiration pneumonia. 4. Acute kidney injury from acute tubular necrosis. 5. Hypoxic respiratory failure. 6. Metabolic acidosis. 7. Diabetes mellitus. PERTINENT HISTORY/HOSPITAL COURSE The patient is a 62-year-old man who was brought to [facility] after a witnessed cardiac arrest out in the field. CPR was done immediately by the family until EMS arrived. The patient received multiple shocks prior to reaching the emergency room. The patient was intubated at the emergency room, started on hypothermia protocol. Patient subsequently underwent cardiac catheterization and was noted to have multiple areas of 90% stenosis of the RCA which were stented x3, following which the patient was weaned off the ventilator. During his hospitalization, the patient's blood sugar was elevated and the patient was started on Levemir insulin which controlled his blood sugar. Also during his hospitalization, the patient was noted to have pneumonia. Procalcitonin was 7.6. Sputum cultures grew back methicillin sensitive Staph aureus. He was treated with IV cefazolin. Also during his admission, he was noted to have renal failure which improved gradually. He also was noted to have hypokalemia and was treated with potassium supplementation. DISCHARGE MEDICATIONS 1. Bumex 2 mg p.o. b.i.d. 2. Zaroxolyn 5 mg p.o. daily. 3. Lipitor 40 mg at bedtime. 4. Levemir insulin 5 units subcu daily. 5. Nitroglycerin 0.4 mg subcu p.r.n. for chest pain. 6. Aspirin 81 mg p.o. daily. 7. Brilinta 90 mg p.o. twice daily. 8. Coreg 6.25 mg p.o. twice daily. 9. Colace 100 mg p.o. twice daily. 10. Lisinopril 2.5 mg p.o. daily. 11. Potassium chloride 20 mEq p.o. b.i.d. 12. Keflex 500 mg p.o. b.i.d. for seven days. DISCHARGE INSTRUCTIONS The patient is to follow up with cardiology in two weeks. Follow up with Unit #: [id number] #: [id number] Patient: JANEL CAMACHO primary care physician. Dictated by... Debi Garcia TD: 06/05/2017 11:38 JOB #: [id number] DISCHARGE SUMMARY Page 1 of 1 X X DISCHARGE SUMMARY
--- NOTE | ~2017-05-27 | EKG ---
PATIENT: JANEL CAMACHO UNIT #: [id number] Ventricular Rate: 62 BPM Atrial Rate: 62 BPM P-R Interval: 108 ms QRS Duration: 84 ms Q-T Interval: 398 ms QTC Calculation(Bezet): 403 ms P [place]: -2 degrees Calculated R [place]: 3 degrees Calculated T [place]: -42 degrees Diagnosis Line: Sinus rhythm with short OR Diagnosis Line: ST and T wave abnormality, consider inferior Diagnosis Line: ischemia Diagnosis Line: Abnormal ECG Diagnosis Line: When compared with ECG of 01-JUN-2017 06:08, Diagnosis Line: (unconfirmed) Diagnosis Line: OR interval has decreased Diagnosis Line: Nonspecific T wave abnormality now evident in Diagnosis Line: Lateral leads Diagnosis Line: Confirmed by GYPSY OMALLEY MD ([id number]) on 06/05/2017 Diagnosis Line: 7:56:52 AM INTERPRETING MD: SHAHRAM LAURA
[~2017-05-27 13:06] MED LIST: ASPIRIN325 M1 PO; CRESTOR10 MG DOB; DIOVAN PO; LOVAZA1 G PO; METOPROLOL SUCC25 MG PO; RAMIPRIL10 MG PO; TYLENOL #3 PO
[2017-05-27 13:56] LABS: URINE SOURCE CATH
[2017-05-27 14:07] LABS: BASOPHIL# 0.1 X10e3 (0-0.3); BASOPHIL% 0.7 % (0-2.5); EOSINOPHIL# 0.2 X10e3 (0-0.7); EOSINOPHIL% 1.7 % (0.0-7.0); HEMATOCRIT 47.3 % (38.0-50.0); HEMOGLOBIN 15.8 gm/dL (13.0-16.0); LYMPHOCYTE# 5.9 X10e3 (1.0-3.5); LYMPHOCYTE% 64.4 % (17.0-45.0); MEAN CELL VOLUME 98.6 FL (83-96); MEAN CORPUSCULAR HEMOGLOBIN 32.9 PG (28-34); MEAN CORPUSCULAR HGB CONC 33.4 g/dL (30-36); MEAN PLATELET VOLUME 7.7 FL (6.5-11.5); MONOCYTE# 0.2 X10e3 (0-1.0); MONOCYTE% 2.6 % (3.0-12.0); NEUTROPHIL# 2.8 X10e3 (1.5-7.1); NEUTROPHIL% 30.6 % (40-75); PLATELET COUNT 118 X10e3 (140-420); RED BLOOD COUNT 4.79 X10e (3.90-5.60); RED CELL DISTRIBUTION WIDTH 14.8 % (11.0-15.5); WHITE BLOOD COUNT 9.2 X10e3 (4.0-10.5)
[2017-05-27 14:10] LABS: DIFF IND YES
[2017-05-27 14:16] LABS: AMPHETAMINE NEG (NEG); BARBITURATES NEG (NEG); BENZODIAZEPINES NEG (NEG); COCAINE NEG (NEG); MARIJUANA NEG (NEG); OPIATES NEG (NEG); TRICYCLIC ANTIDEPRESSANTS NEG (NEG); U METHADONE NEG (NEG)
[2017-05-27 14:16] LABS: ARTERIAL BLD GAS O2 SATURATION 92.4 % (90.0-100.0); ARTERIAL BLOOD GAS CARBOXY HB 1.9 %sat (0.0-9.0); ARTERIAL BLOOD GAS HCO3 16.1 mmol/L; ARTERIAL BLOOD GAS MET HB 1.1 %sat (0.0-2.0); ARTERIAL BLOOD GAS PCO2 46.6 mmHg (35.0-45.0)
[2017-05-27 14:17] LABS: ARTERIAL BLOOD GAS ART SITE LEFT RADIAL; ARTERIAL BLOOD GAS DELIVERY VENT; ARTERIAL BLOOD GAS VENT MODE AC; ARTERIAL BLOOD GAS pH 7.147 (7.350-7.450); ARTERIAL DRAW? YES
[2017-05-27 14:20] LABS: PARTIAL THROMBOPLASTIN TIME 26.6 SECONDS (23.5-31.3); PROTHROMBIN TIME (PATIENT) 11.3 SECONDS (10.0-11.7)
[2017-05-27 14:24] LABS: POC - CKMB 2.6 ng/mL (0.0-7.9); POC - TROPONIN <0.05 ng/mL (<=0.05)
[2017-05-27 14:29] LABS: URINE APPEARANCE CLEAR; URINE BILIRUBIN NEG (NEG); URINE BLOOD 2+ (NEG); URINE COLOR YELLOW; URINE GLUCOSE 250 MG/DL (NEG); URINE KETONE NEG (NEG); URINE LEUKOCYTE ESTERASE NEG (NEG); URINE NITRATE NEG (NEG); URINE PROTEIN 3+ (NEG); URINE UROBILINOGEN 0.2 MG/DL (NEG)
[2017-05-27 14:29] LABS: ALBUMIN SERUM 3.5 g/dL (3.5-5.0); BILIRUBIN, DIRECT 0.1 mg/dL (0.0-0.2); BILIRUBIN,INDIRECT 0.9 mg/dL (0.0-0.9); CALCIUM SERUM 9.6 mg/dL (8.4-10.2); CREATININE SERUM 1.5 mg/dL (0.6-1.4); GLOM FILT RATE Estimated 48.9 mL/min (>60); PROTEIN TOTAL SERUM 6.2 g/dL (6.0-8.3)
[2017-05-27 14:30] LABS: POTASSIUM 3.1 mmol/L (3.5-5.1)
[2017-05-27 14:32] LABS: CULTURE INDICATED? YES; URINE BACTERIA AUWI NEG (NEGATIVE); URINE SQUAMOUS EPITHELIAL CELL MOD /[HPF]
[2017-05-27 14:57] LABS: PLATELET ESTIMATE DECREASED (NORMAL)
[2017-05-27 14:58] LABS: POLYCHROMASIA MOD
[2017-05-27] MEDS ORDERED: [UNRECOGNIZED DRUG - OTHER] (16:02)
[2017-05-27] MEDS ORDERED: CO Q-10400 MG PO (16:03)
[2017-05-27] MEDS ORDERED: RED YEAST RICE600 MG PO (16:03)
[2017-05-27] MEDS ORDERED: FISH OIL300 MG PO (16:03)
[2017-05-27] MEDS ORDERED: VITAMIN D1000 UNIT PO (16:03)
[2017-05-27] MEDS ORDERED: VALSARTAN-HCTZ1 EAC3 PO (16:04)
[2017-05-27] MEDS ORDERED: CRESTOR PO (16:04)
[2017-05-27] MEDS ORDERED: METOPROLOL SUCC25 MG PO (16:04)
[2017-05-27] MEDS ORDERED: ASPIRIN81 M2 PO (16:04)
[2017-05-27] MEDS ORDERED: ALTACE PO (16:04)
[2017-05-27] MEDS ORDERED: FLOMAX0.4 M1 PO (16:04)
[2017-05-27 17:19] LABS: ARTERIAL BLD GAS O2 SATURATION 94.3 % (90.0-100.0); ARTERIAL BLOOD GAS HCO3 21.4 mmol/L; ARTERIAL BLOOD GAS MET HB 1.1 %sat (0.0-2.0); ARTERIAL BLOOD GAS PCO2 48.7 mmHg (35.0-45.0)
[2017-05-27 17:21] LABS: ARTERIAL BLOOD GAS ART SITE ARTERIAL LINE; ARTERIAL BLOOD GAS DELIVERY VENT; ARTERIAL DRAW? YES
[2017-05-27 17:22] LABS: ARTERIAL BLOOD GAS VENT MODE PRVC
[2017-05-27 18:05] LABS: CHOLESTEROL 263 mg/dL (0-200); HDL CHOLESTEROL 31 mg/dL (29-75); TRIGLYCERIDES 539 mg/dL (10-160)
[2017-05-27 19:28] LABS: %MB 5.6 % (0.0-4.0); MB 184.2 ng/ml
[2017-05-27 20:42] LABS: BASOPHIL% 0.1 % (0-2.5); EOSINOPHIL% 0.1 % (0.0-7.0); HEMATOCRIT 44.2 % (38.0-50.0); HEMOGLOBIN 14.6 gm/dL (13.0-16.0); LYMPHOCYTE# 0.8 X10e3 (1.0-3.5); LYMPHOCYTE% 8.2 % (17.0-45.0); MEAN CELL VOLUME 96.1 FL (83-96); MEAN CORPUSCULAR HEMOGLOBIN 31.8 PG (28-34); MEAN CORPUSCULAR HGB CONC 33.1 g/dL (30-36); MEAN PLATELET VOLUME 7.5 FL (6.5-11.5); MONOCYTE# 0.7 X10e3 (0-1.0); MONOCYTE% 6.6 % (3.0-12.0); NEUTROPHIL# 8.6 X10e3 (1.5-7.1); PLATELET COUNT 144 X10e3 (140-420); RED CELL DISTRIBUTION WIDTH 14.6 % (11.0-15.5); WHITE BLOOD COUNT 10.1 X10e3 (4.0-10.5)
[2017-05-27 20:46] LABS: DIFF IND NO
[2017-05-27 20:56] LABS: INR 1.1; PARTIAL THROMBOPLASTIN TIME 26.2 SECONDS (23.5-31.3); PROTHROMBIN TIME (PATIENT) 11.7 SECONDS (10.0-11.7)
[2017-05-27 21:01] LABS: BUN/CREATININE RATIO 9.33; CREATININE SERUM 1.5 mg/dL (0.6-1.4); GLOM FILT RATE Estimated 48.9 mL/min (>60); PHOSPHOROUS 2.5 mg/dL (2.5-4.6)
[2017-05-27 21:03] LABS: CALCIUM SERUM 7.5 mg/dL (8.4-10.2); POTASSIUM 2.5 mmol/L (3.5-5.1)
[2017-05-28 02:15] LABS: BASOPHIL% 0.2 % (0-2.5); HEMATOCRIT 44.3 % (38.0-50.0); HEMOGLOBIN 14.4 gm/dL (13.0-16.0); LYMPHOCYTE# 1.5 X10e3 (1.0-3.5); LYMPHOCYTE% 7.4 % (17.0-45.0); MEAN CELL VOLUME 97.4 FL (83-96); MEAN CORPUSCULAR HEMOGLOBIN 31.7 PG (28-34); MEAN CORPUSCULAR HGB CONC 32.6 g/dL (30-36); MEAN PLATELET VOLUME 7.6 FL (6.5-11.5); MONOCYTE# 1.5 X10e3 (0-1.0); MONOCYTE% 7.4 % (3.0-12.0); NEUTROPHIL# 16.9 X10e3 (1.5-7.1); PLATELET COUNT 198 X10e3 (140-420); RED BLOOD COUNT 4.55 X10e (3.90-5.60); RED CELL DISTRIBUTION WIDTH 14.5 % (11.0-15.5); WHITE BLOOD COUNT 19.9 X10e3 (4.0-10.5)
[2017-05-28 02:16] LABS: DIFF IND YES
[2017-05-28 02:24] LABS: INR 1.1; PARTIAL THROMBOPLASTIN TIME 33.7 SECONDS (23.5-31.3); PROTHROMBIN TIME (PATIENT) 12.1 SECONDS (10.0-11.7)
[2017-05-28 02:49] LABS: BLOOD UREA NITROGEN 17 mg/dL (9-23); BUN/CREATININE RATIO 9.44; CALCIUM SERUM 7.2 mg/dL (8.4-10.2); CARBON DIOXIDE 16 mmol/L (22-31); CHLORIDE 107 mmol/L (100-111); CK TOTAL 4217 IU/L (36-174); CREATININE SERUM 1.8 mg/dL (0.6-1.4); GLOM FILT RATE Estimated 39.2 mL/min (>60); GLUCOSE FASTING 286 mg/dL (70-110); MAGNESIUM 2.1 mg/dL (1.6-3.0); PHOSPHOROUS 2.8 mg/dL (2.5-4.6); POTASSIUM 2.6 mmol/L (3.5-5.1); SODIUM 135 mmol/L (135-145)
[2017-05-28 02:53] LABS: PLATELET ESTIMATE NORMAL (NORMAL); POLYCHROMASIA SL
[2017-05-28 03:07] LABS: MB >296.0 ng/ml
[2017-05-28 04:58] LABS: ARTERIAL BLD GAS O2 SATURATION 98.3 % (90.0-100.0); ARTERIAL BLOOD GAS HCO3 12.3 mmol/L; ARTERIAL BLOOD GAS MET HB 1.2 %sat (0.0-2.0); ARTERIAL BLOOD GAS PCO2 32.9 mmHg (35.0-45.0)
[2017-05-28 05:01] LABS: ARTERIAL BLOOD GAS pH 7.183 (7.350-7.450)
[2017-05-28 05:02] LABS: ARTERIAL BLOOD GAS ART SITE ARTERIAL LINE; ARTERIAL BLOOD GAS VENT MODE PRVC; ARTERIAL DRAW? NO
[2017-05-28 08:23] LABS: ARTERIAL BLOOD GAS ALLEN TEST NORMAL
[2017-05-28 09:15] LABS: BASOPHIL% 0.1 % (0-2.5); EOSINOPHIL% 0.1 % (0.0-7.0); HEMATOCRIT 43.4 % (38.0-50.0); HEMOGLOBIN 14.5 gm/dL (13.0-16.0); LYMPHOCYTE# 0.9 X10e3 (1.0-3.5); MEAN CELL VOLUME 96.8 FL (83-96); MEAN CORPUSCULAR HEMOGLOBIN 32.2 PG (28-34); MEAN CORPUSCULAR HGB CONC 33.3 g/dL (30-36); MEAN PLATELET VOLUME 7.9 FL (6.5-11.5); MONOCYTE# 0.9 X10e3 (0-1.0); MONOCYTE% 5.7 % (3.0-12.0); NEUTROPHIL# 13.4 X10e3 (1.5-7.1); NEUTROPHIL% 88.1 % (40-75); PLATELET COUNT 193 X10e3 (140-420); RED BLOOD COUNT 4.48 X10e (3.90-5.60); RED CELL DISTRIBUTION WIDTH 14.7 % (11.0-15.5); WHITE BLOOD COUNT 15.2 X10e3 (4.0-10.5)
[2017-05-28 09:28] LABS: INR 1.1
[2017-05-28 09:30] LABS: DIFF IND NO
[2017-05-28 09:39] LABS: BUN/CREATININE RATIO 9.44; CALCIUM SERUM 7.4 mg/dL (8.4-10.2); CREATININE SERUM 1.8 mg/dL (0.6-1.4); GLOM FILT RATE Estimated 39.2 mL/min (>60); MAGNESIUM 1.9 mg/dL (1.6-3.0); POTASSIUM 3.4 mmol/L (3.5-5.1)
[2017-05-28 13:07] LABS: ARTERIAL BLD GAS O2 SATURATION 95.2 % (90.0-100.0); ARTERIAL BLOOD GAS CARBOXY HB 0.1 %sat (0.0-9.0); ARTERIAL BLOOD GAS HCO3 15.4 mmol/L; ARTERIAL BLOOD GAS PCO2 29.6 mmHg (35.0-45.0); ARTERIAL BLOOD GAS PO2 87.5 mmHg (80.0-100); ARTERIAL BLOOD GAS pH 7.323 (7.350-7.450)
[2017-05-28 13:08] LABS: ARTERIAL BLOOD GAS ART SITE ARTERIAL LINE; ARTERIAL BLOOD GAS DELIVERY VENT; ARTERIAL BLOOD GAS VENT MODE PRVC; ARTERIAL DRAW? YES
[2017-05-28 15:18] LABS: BASOPHIL% 0.1 % (0-2.5); HEMATOCRIT 42.3 % (38.0-50.0); HEMOGLOBIN 14.5 gm/dL (13.0-16.0); LYMPHOCYTE# 0.5 X10e3 (1.0-3.5); LYMPHOCYTE% 6.4 % (17.0-45.0); MEAN CELL VOLUME 95.5 FL (83-96); MEAN CORPUSCULAR HEMOGLOBIN 32.7 PG (28-34); MEAN CORPUSCULAR HGB CONC 34.2 g/dL (30-36); MEAN PLATELET VOLUME 7.8 FL (6.5-11.5); MONOCYTE# 0.3 X10e3 (0-1.0); MONOCYTE% 3.6 % (3.0-12.0); NEUTROPHIL# 7.7 X10e3 (1.5-7.1); NEUTROPHIL% 89.9 % (40-75); PLATELET COUNT 124 X10e3 (140-420); RED BLOOD COUNT 4.43 X10e (3.90-5.60); RED CELL DISTRIBUTION WIDTH 14.7 % (11.0-15.5); WHITE BLOOD COUNT 8.5 X10e3 (4.0-10.5)
[2017-05-28 15:23] LABS: DIFF IND NO; INR 1.2; PROTHROMBIN TIME (PATIENT) 12.8 SECONDS (10.0-11.7)
[2017-05-28 15:42] LABS: CALCIUM SERUM 7.6 mg/dL (8.4-10.2); CREATININE SERUM 1.5 mg/dL (0.6-1.4); GLOM FILT RATE Estimated 48.9 mL/min (>60); POTASSIUM 3.7 mmol/L (3.5-5.1)
[2017-05-28 16:06] LABS: MAGNESIUM 1.7 mg/dL (1.6-3.0); PHOSPHOROUS 1.2 mg/dL (2.5-4.6)
[2017-05-28 21:11] LABS: BASOPHIL% 0.2 % (0-2.5); DIFF IND NO; EOSINOPHIL% 0.1 % (0.0-7.0); LYMPHOCYTE# 0.8 X10e3 (1.0-3.5); MEAN PLATELET VOLUME 7.4 FL (6.5-11.5); MONOCYTE# 0.7 X10e3 (0-1.0); MONOCYTE% 7.8 % (3.0-12.0); NEUTROPHIL% 83.9 % (40-75); PLATELET COUNT 128 X10e3 (140-420); RED BLOOD COUNT 4.68 X10e (3.90-5.60); RED CELL DISTRIBUTION WIDTH 14.8 % (11.0-15.5); WHITE BLOOD COUNT 9.5 X10e3 (4.0-10.5)
[2017-05-28 21:24] LABS: INR 1.2; PROTHROMBIN TIME (PATIENT) 12.7 SECONDS (10.0-11.7)
[2017-05-28 21:55] LABS: BUN/CREATININE RATIO 12.14; CALCIUM SERUM 7.8 mg/dL (8.4-10.2); CREATININE SERUM 1.4 mg/dL (0.6-1.4); GLOM FILT RATE Estimated 53.1 mL/min (>60); PHOSPHOROUS 2.2 mg/dL (2.5-4.6)
[2017-05-28 21:57] LABS: POTASSIUM 2.6 mmol/L (3.5-5.1)
[2017-05-29 04:25] LABS: ARTERIAL BLD GAS O2 SATURATION 93.5 % (90.0-100.0); ARTERIAL BLOOD GAS HCO3 21.2 mmol/L; ARTERIAL BLOOD GAS MET HB 1.1 %sat (0.0-2.0); ARTERIAL BLOOD GAS PCO2 35.1 mmHg (35.0-45.0); ARTERIAL BLOOD GAS PO2 80.7 mmHg (80.0-100); ARTERIAL BLOOD GAS pH 7.389 (7.350-7.450)
[2017-05-29 05:01] LABS: ARTERIAL BLOOD GAS ART SITE ARTERIAL LINE; ARTERIAL BLOOD GAS VENT MODE PRVC; ARTERIAL DRAW? NO
[2017-05-29 06:28] LABS: BASOPHIL% 0.1 % (0-2.5); EOSINOPHIL% 0.1 % (0.0-7.0); HEMATOCRIT 44.7 % (38.0-50.0); HEMOGLOBIN 14.9 gm/dL (13.0-16.0); LYMPHOCYTE# 0.6 X10e3 (1.0-3.5); LYMPHOCYTE% 5.5 % (17.0-45.0); MEAN CORPUSCULAR HEMOGLOBIN 31.6 PG (28-34); MEAN CORPUSCULAR HGB CONC 33.2 g/dL (30-36); MEAN PLATELET VOLUME 8.1 FL (6.5-11.5); MONOCYTE# 0.7 X10e3 (0-1.0); MONOCYTE% 6.2 % (3.0-12.0); NEUTROPHIL# 9.8 X10e3 (1.5-7.1); NEUTROPHIL% 88.1 % (40-75); PLATELET COUNT 152 X10e3 (140-420); RED BLOOD COUNT 4.71 X10e (3.90-5.60); RED CELL DISTRIBUTION WIDTH 14.8 % (11.0-15.5); WHITE BLOOD COUNT 11.1 X10e3 (4.0-10.5)
[2017-05-29 06:52] LABS: DIFF IND NO
[2017-05-29 06:54] LABS: BILIRUBIN,TOTAL 0.5 mg/dL (0.2-2.0); BUN/CREATININE RATIO 13.07; CALCIUM SERUM 7.4 mg/dL (8.4-10.2); CREATININE SERUM 1.3 mg/dL (0.6-1.4); GLOM FILT RATE Estimated 57.7 mL/min (>60); MAGNESIUM 1.7 mg/dL (1.6-3.0); PHOSPHOROUS 2.6 mg/dL (2.5-4.6); POTASSIUM 3.3 mmol/L (3.5-5.1); PROTEIN TOTAL SERUM 5.7 g/dL (6.0-8.3)
[2017-05-29 07:14] LABS: INR 1.1; PROTHROMBIN TIME (PATIENT) 12.3 SECONDS (10.0-11.7)
[2017-05-29 13:43] LABS: BASOPHIL% 0.2 % (0-2.5); EOSINOPHIL% 0.1 % (0.0-7.0); HEMATOCRIT 41.5 % (38.0-50.0); HEMOGLOBIN 14.4 gm/dL (13.0-16.0); LYMPHOCYTE# 0.7 X10e3 (1.0-3.5); LYMPHOCYTE% 4.7 % (17.0-45.0); MEAN CELL VOLUME 93.7 FL (83-96); MEAN CORPUSCULAR HEMOGLOBIN 32.5 PG (28-34); MEAN CORPUSCULAR HGB CONC 34.7 g/dL (30-36); MEAN PLATELET VOLUME 7.5 FL (6.5-11.5); NEUTROPHIL# 12.7 X10e3 (1.5-7.1); PLATELET COUNT 170 X10e3 (140-420); RED BLOOD COUNT 4.43 X10e (3.90-5.60); RED CELL DISTRIBUTION WIDTH 14.9 % (11.0-15.5); WHITE BLOOD COUNT 14.5 X10e3 (4.0-10.5)
[2017-05-29 13:55] LABS: DIFF IND NO
[2017-05-29 14:02] LABS: INR 1.2; PROTHROMBIN TIME (PATIENT) 12.7 SECONDS (10.0-11.7)
[2017-05-29 14:12] LABS: BUN/CREATININE RATIO 10.55; CALCIUM SERUM 7.1 mg/dL (8.4-10.2); CREATININE SERUM 1.8 mg/dL (0.6-1.4); GLOM FILT RATE Estimated 38.9 mL/min (>60); MAGNESIUM 1.5 mg/dL (1.6-3.0); PHOSPHOROUS 2.4 mg/dL (2.5-4.6); POTASSIUM 4.4 mmol/L (3.5-5.1)
[2017-05-29 14:30] LABS: %MB 4.6 % (0.0-4.0); MB 183.5 ng/ml
[2017-05-30 04:12] LABS: ARTERIAL BLD GAS O2 SATURATION 97.2 % (90.0-100.0); ARTERIAL BLOOD GAS CARBOXY HB 0.1 %sat (0.0-9.0); ARTERIAL BLOOD GAS HCO3 20.3 mmol/L; ARTERIAL BLOOD GAS MET HB 1.1 %sat (0.0-2.0); ARTERIAL BLOOD GAS PCO2 33.7 mmHg (35.0-45.0); ARTERIAL BLOOD GAS pH 7.388 (7.350-7.450)
[2017-05-30 04:16] LABS: ARTERIAL BLOOD GAS ART SITE ARTERIAL LINE; ARTERIAL BLOOD GAS DELIVERY VENT; ARTERIAL BLOOD GAS VENT MODE PRVC; ARTERIAL DRAW? NO
[2017-05-30 04:56] LABS: HEMATOCRIT 39.8 % (38.0-50.0); HEMOGLOBIN 13.2 gm/dL (13.0-16.0); MEAN CELL VOLUME 96.4 FL (83-96); MEAN CORPUSCULAR HEMOGLOBIN 32.1 PG (28-34); MEAN CORPUSCULAR HGB CONC 33.3 g/dL (30-36); MEAN PLATELET VOLUME 8.4 FL (6.5-11.5); RED BLOOD COUNT 4.13 X10e (3.90-5.60); RED CELL DISTRIBUTION WIDTH 15.4 % (11.0-15.5)
[2017-05-30 05:49] LABS: ALBUMIN SERUM 2.8 g/dL (3.5-5.0); BILIRUBIN,TOTAL 0.9 mg/dL (0.2-2.0); BUN/CREATININE RATIO 9.52; CREATININE SERUM 2.1 mg/dL (0.6-1.4); GLOM FILT RATE Estimated 32.3 mL/min (>60); MAGNESIUM 1.8 mg/dL (1.6-3.0); PHOSPHOROUS 3.5 mg/dL (2.5-4.6); POTASSIUM 4.3 mmol/L (3.5-5.1); PROTEIN TOTAL SERUM 5.4 g/dL (6.0-8.3)
[2017-05-30 14:50] LABS: ALBUMIN SERUM 2.6 g/dL (3.5-5.0); BUN/CREATININE RATIO 10.5; CALCIUM SERUM 7.1 mg/dL (8.4-10.2); GLOM FILT RATE Estimated 34.3 mL/min (>60); MAGNESIUM 1.9 mg/dL (1.6-3.0); POTASSIUM 3.4 mmol/L (3.5-5.1); PROTEIN TOTAL SERUM 5.2 g/dL (6.0-8.3)
[2017-05-31 03:56] LABS: ARTERIAL BLD GAS O2 SATURATION 95.4 % (90.0-100.0); ARTERIAL BLOOD GAS HCO3 24.5 mmol/L; ARTERIAL BLOOD GAS MET HB 0.9 %sat (0.0-2.0); ARTERIAL BLOOD GAS PCO2 35.5 mmHg (35.0-45.0); ARTERIAL BLOOD GAS PO2 93.7 mmHg (80.0-100); ARTERIAL BLOOD GAS pH 7.448 (7.350-7.450)
[2017-05-31 04:00] LABS: ARTERIAL BLOOD GAS ART SITE ARTERIAL LINE; ARTERIAL BLOOD GAS DELIVERY VENT; ARTERIAL BLOOD GAS VENT MODE PRVC; ARTERIAL DRAW? YES
[2017-05-31 05:26] LABS: HEMATOCRIT 34.5 % (38.0-50.0); HEMOGLOBIN 11.9 gm/dL (13.0-16.0); MEAN CELL VOLUME 94.9 FL (83-96); MEAN CORPUSCULAR HEMOGLOBIN 32.8 PG (28-34); MEAN CORPUSCULAR HGB CONC 34.6 g/dL (30-36); MEAN PLATELET VOLUME 8.3 FL (6.5-11.5); RED BLOOD COUNT 3.63 X10e (3.90-5.60); RED CELL DISTRIBUTION WIDTH 15.3 % (11.0-15.5); WHITE BLOOD COUNT 9.1 X10e3 (4.0-10.5)
[2017-05-31 05:33] LABS: INR 1.1; PARTIAL THROMBOPLASTIN TIME 39.8 SECONDS (23.5-31.3); PROTHROMBIN TIME (PATIENT) 12.1 SECONDS (10.0-11.7)
[2017-05-31 06:00] LABS: ALBUMIN SERUM 2.6 g/dL (3.5-5.0); BILIRUBIN,TOTAL 0.6 mg/dL (0.2-2.0); BUN/CREATININE RATIO 11.36; CALCIUM SERUM 7.5 mg/dL (8.4-10.2); CREATININE SERUM 2.2 mg/dL (0.6-1.4); GLOM FILT RATE Estimated 30.5 mL/min (>60); MAGNESIUM 1.7 mg/dL (1.6-3.0); PHOSPHOROUS 2.1 mg/dL (2.5-4.6); POTASSIUM 3.8 mmol/L (3.5-5.1); PROTEIN TOTAL SERUM 5.4 g/dL (6.0-8.3)
[2017-06-01 03:56] LABS: ARTERIAL BLD GAS O2 SATURATION 95.2 % (90.0-100.0); ARTERIAL BLOOD GAS CARBOXY HB 0.7 %sat (0.0-9.0); ARTERIAL BLOOD GAS HCO3 26.9 mmol/L; ARTERIAL BLOOD GAS PCO2 38.8 mmHg (35.0-45.0); ARTERIAL BLOOD GAS PO2 84.1 mmHg (80.0-100); ARTERIAL BLOOD GAS pH 7.449 (7.350-7.450)
[2017-06-01 04:01] LABS: ARTERIAL BLOOD GAS ART SITE ARTERIAL LINE; ARTERIAL BLOOD GAS DELIVERY VENT; ARTERIAL BLOOD GAS VENT MODE PRVC; ARTERIAL DRAW? YES
[2017-06-01 04:35] LABS: BASOPHIL% 0.2 % (0-2.5); EOSINOPHIL% 0.9 % (0.0-7.0); HEMATOCRIT 33.9 % (38.0-50.0); HEMOGLOBIN 11.6 gm/dL (13.0-16.0); LYMPHOCYTE# 0.9 X10e3 (1.0-3.5); LYMPHOCYTE% 16.2 % (17.0-45.0); MEAN CELL VOLUME 96.2 FL (83-96); MEAN CORPUSCULAR HGB CONC 34.3 g/dL (30-36); MEAN PLATELET VOLUME 8.2 FL (6.5-11.5); MONOCYTE# 0.7 X10e3 (0-1.0); MONOCYTE% 12.9 % (3.0-12.0); NEUTROPHIL% 69.8 % (40-75); PLATELET COUNT 119 X10e3 (140-420); RED BLOOD COUNT 3.52 X10e (3.90-5.60); RED CELL DISTRIBUTION WIDTH 15.4 % (11.0-15.5); WHITE BLOOD COUNT 5.7 X10e3 (4.0-10.5)
[2017-06-01 04:36] LABS: DIFF IND NO
[2017-06-01 05:05] LABS: ALBUMIN SERUM 2.5 g/dL (3.5-5.0); BUN/CREATININE RATIO 13.63; CALCIUM SERUM 7.7 mg/dL (8.4-10.2); CREATININE SERUM 2.2 mg/dL (0.6-1.4); GLOM FILT RATE Estimated 30.5 mL/min (>60); MAGNESIUM 1.8 mg/dL (1.6-3.0); PHOSPHOROUS 3.5 mg/dL (2.5-4.6); POTASSIUM 3.2 mmol/L (3.5-5.1); PROTEIN TOTAL SERUM 4.9 g/dL (6.0-8.3)
[2017-06-01 11:53] LABS: ARTERIAL BLOOD GAS HCO3 28.9 mmol/L; ARTERIAL BLOOD GAS PCO2 42.8 mmHg (35.0-45.0); ARTERIAL BLOOD GAS PO2 82.3 mmHg (80.0-100); ARTERIAL BLOOD GAS pH 7.438 (7.350-7.450)
[2017-06-01 11:54] LABS: ARTERIAL BLOOD GAS ALLEN TEST NORMAL; ARTERIAL BLOOD GAS ART SITE RIGHT RADIAL; ARTERIAL BLOOD GAS DELIVERY VENT; ARTERIAL BLOOD GAS VENT MODE CPAP; ARTERIAL DRAW? YES
[2017-06-02 05:56] LABS: BASOPHIL% 0.2 % (0-2.5); EOSINOPHIL# 0.1 X10e3 (0-0.7); EOSINOPHIL% 1.5 % (0.0-7.0); HEMATOCRIT 32.6 % (38.0-50.0); HEMOGLOBIN 11.4 gm/dL (13.0-16.0); LYMPHOCYTE# 0.7 X10e3 (1.0-3.5); LYMPHOCYTE% 14.7 % (17.0-45.0); MEAN CELL VOLUME 94.3 FL (83-96); MEAN CORPUSCULAR HEMOGLOBIN 32.9 PG (28-34); MEAN CORPUSCULAR HGB CONC 34.9 g/dL (30-36); MEAN PLATELET VOLUME 7.9 FL (6.5-11.5); MONOCYTE# 0.8 X10e3 (0-1.0); MONOCYTE% 16.2 % (3.0-12.0); NEUTROPHIL# 3.3 X10e3 (1.5-7.1); NEUTROPHIL% 67.4 % (40-75); PLATELET COUNT 122 X10e3 (140-420); RED BLOOD COUNT 3.45 X10e (3.90-5.60); RED CELL DISTRIBUTION WIDTH 14.7 % (11.0-15.5)
[2017-06-02 06:04] LABS: DIFF IND NO
[2017-06-02 06:48] LABS: BUN/CREATININE RATIO 14.28; CALCIUM SERUM 8.9 mg/dL (8.4-10.2); CREATININE SERUM 2.1 mg/dL (0.6-1.4); GLOM FILT RATE Estimated 32.3 mL/min (>60)
[2017-06-02 06:52] LABS: POTASSIUM 2.8 mmol/L (3.5-5.1)
[2017-06-03 05:59] LABS: BASOPHIL# 0.1 X10e3 (0-0.3); BASOPHIL% 0.8 % (0-2.5); EOSINOPHIL# 0.2 X10e3 (0-0.7); EOSINOPHIL% 2.6 % (0.0-7.0); HEMATOCRIT 36.7 % (38.0-50.0); HEMOGLOBIN 12.9 gm/dL (13.0-16.0); LYMPHOCYTE# 1.2 X10e3 (1.0-3.5); LYMPHOCYTE% 15.6 % (17.0-45.0); MEAN CELL VOLUME 94.2 FL (83-96); MEAN CORPUSCULAR HEMOGLOBIN 33.2 PG (28-34); MEAN CORPUSCULAR HGB CONC 35.2 g/dL (30-36); MONOCYTE# 1.1 X10e3 (0-1.0); MONOCYTE% 15.4 % (3.0-12.0); NEUTROPHIL# 4.8 X10e3 (1.5-7.1); NEUTROPHIL% 65.6 % (40-75); PLATELET COUNT 180 X10e3 (140-420); RED BLOOD COUNT 3.89 X10e (3.90-5.60); RED CELL DISTRIBUTION WIDTH 14.2 % (11.0-15.5); WHITE BLOOD COUNT 7.4 X10e3 (4.0-10.5)
[2017-06-03 06:07] LABS: DIFF IND NO
[2017-06-03 06:46] LABS: BUN/CREATININE RATIO 15.55; CALCIUM SERUM 9.6 mg/dL (8.4-10.2); CREATININE SERUM 1.8 mg/dL (0.6-1.4); GLOM FILT RATE Estimated 38.9 mL/min (>60); MAGNESIUM 1.8 mg/dL (1.6-3.0); POTASSIUM 3.4 mmol/L (3.5-5.1)
[2017-06-04 05:21] LABS: HEMATOCRIT 39.4 % (38.0-50.0); HEMOGLOBIN 13.6 gm/dL (13.0-16.0); MEAN CELL VOLUME 94.5 FL (83-96); MEAN CORPUSCULAR HEMOGLOBIN 32.6 PG (28-34); MEAN CORPUSCULAR HGB CONC 34.5 g/dL (30-36); MEAN PLATELET VOLUME 8.7 FL (6.5-11.5); RED BLOOD COUNT 4.17 X10e (3.90-5.60); WHITE BLOOD COUNT 7.8 X10e3 (4.0-10.5)
[2017-06-04 07:08] LABS: BUN/CREATININE RATIO 18.33; CALCIUM SERUM 9.7 mg/dL (8.4-10.2); CREATININE SERUM 1.8 mg/dL (0.6-1.4); GLOM FILT RATE Estimated 38.9 mL/min (>60); MAGNESIUM 1.9 mg/dL (1.6-3.0)
[2017-06-04 07:11] LABS: POTASSIUM 2.9 mmol/L (3.5-5.1)
[2017-06-04] MEDS ORDERED: ACETAMINOPHEN650 M4 PO (15:02)
[2017-06-04] MEDS ORDERED: COREG6.25 MG PO (15:03)
[2017-06-04] MEDS ORDERED: COLACE50 MG/5 M1 PO (15:04)
[2017-06-04] MEDS ORDERED: NITROGLYCERIN0.3 M1 SL (15:06)
[2017-06-04] MEDS ORDERED: ASPIRIN81 MG PO (15:06)
[2017-06-04] MEDS ORDERED: BUMEX2 MG PO (15:07)
[2017-06-04] MEDS ORDERED: BRILINTA90 MG PO (15:07)
[2017-06-04] MEDS ORDERED: METOLAZONE5 MG PO (15:08)
[2017-06-04] MEDS ORDERED: LIPITOR40 MG PO (15:08)
[2017-06-04] MEDS ORDERED: LEVEMIR FL100 UNIT/1 SUBQ (15:10)
[2017-06-04] MEDS ORDERED: LISINOPRIL2.5 MG PO (15:11)
[2017-06-04] MEDS ORDERED: KEFLEX500 M1 PO (15:11)
[2017-06-04] MEDS ORDERED: K-DUR20 ME1 PO (15:12)
== END 2017-06-04 17:04 | disposition home health service (06) | DRG 246 ==
LOC: CED 13:06 → CEDOF 15:50 → CED 16:48 → CICCU3 16:48 → CEDOF 16:48 → CICCU3 16:58 → CEDOF 16:58 → CICCU3 05-28 07:57 → C3A PCU 06-02 21:00
PROVIDERS: Emergency Medicine; Internal Medicine; Internal Medicine Cardiovascular Disease; Internal Medicine Nephrology; Internal Medicine Pulmonary Disease; Nurse Practitioner
PROC: 03HB33Z Insertion of Infusion Device into Right Radial Artery, Percutaneous Approach (ICD-10-PCS; principal; 2017-05-27)
PROC: 05HM33Z Insertion of Infusion Device into Right Internal Jugular Vein, Percutaneous Approach (ICD-10-PCS; 2017-05-27)
PROC: B543ZZA Ultrasonography of Right Jugular Veins, Guidance (ICD-10-PCS; 2017-05-27)
PROC: B24BYZZ Ultrasonography of Heart with Aorta using Other Contrast (ICD-10-PCS; 2017-05-28)
PROC: 027035Z Dilation of Coronary Artery, One Artery with Two Drug-eluting Intraluminal Devices, Percutaneous Approach (ICD-10-PCS; 2017-05-31)
PROC: 4A023N7 Measurement of Cardiac Sampling and Pressure, Left Heart, Percutaneous Approach (ICD-10-PCS; 2017-05-31)
PROC: B211YZZ Fluoroscopy of Multiple Coronary Arteries using Other Contrast (ICD-10-PCS; 2017-05-31)
PROC: B215YZZ Fluoroscopy of Left Heart using Other Contrast (ICD-10-PCS; 2017-05-31)
DX: I49.01 Ventricular fibrillation (principal); I21.4 Non-ST elevation (NSTEMI) myocardial infarction; J96.01 Acute respiratory failure with hypoxia; N17.0 Acute kidney failure with tubular necrosis; J69.0 Pneumonitis due to inhalation of food and vomit; J15.211 Pneumonia due to Methicillin susceptible Staphylococcus aureus; R57.0 Cardiogenic shock; E87.2 Acidosis; M62.82 Rhabdomyolysis; I47.2 Ventricular tachycardia; I46.9 Cardiac arrest, cause unspecified; I25.10 Atherosclerotic heart disease of native coronary artery without angina pectoris; Z95.5 Presence of coronary angioplasty implant and graft; I10 Essential (primary) hypertension; E78.5 Hyperlipidemia, unspecified; G47.33 Obstructive sleep apnea (adult) (pediatric); J44.9 Chronic obstructive pulmonary disease, unspecified; Z85.46 Personal history of malignant neoplasm of prostate; F17.210 Nicotine dependence, cigarettes, uncomplicated; E11.65 Type 2 diabetes mellitus with hyperglycemia; Z79.4 Long term (current) use of insulin; I25.5 Ischemic cardiomyopathy; E87.6 Hypokalemia
CPT/HCPCS: 36415; 36600; 70450; 71010; 71250; 74000; 80048; 80053; 80061; 80076; 80307; 81003; 82308; 82550; 82553; 82803; 82947; 83036; 83605; 83735; 83880; 84100; 84132; 84443; 84484; 85025; 85027; 85347; 85610; 85730; 86850; 86900; 86901; 87040; 87070; 87077; 87086; 87186; 87205; 93005; 93306; 94002; 94003; 94640; 94660; 94760; 94761; 96365; 96366; 97110; 97116; 97163; 97166; 97535; 99291; C1725; C1760; C1769; C1874; C9113; C9460; G8978-GP; G8979-GP; G8980-GP; G8987-GO; G8988-GO; G8989-GO; J0153; J0171; J0282; J0330; J0360; J0461; J0690; J1120; J1265; J1644; J1650; J1815; J2001; J2250; J2270; J2370; J2405; J2543; J3010; J3475

== ENCOUNTER 2017-06-06 01:37 | Inpatient (IN) | payer OTHER ==
[~2017-06-06] VITALS: Ht 177.8 cm; Wt 88.0 kg
--- NOTE | ~2017-06-06 | DS ---
Unit #: [id number] #: [id number] Patient: JANEL CAMACHO [id number] [address] [address] [id number] I MR#: [id number] NAME: JANEL CAMACHO ROOM: 314 Age: 62 Sex: M Admission Date: 06/06/2017 : 1955 Discharge Date: 06/07/2017 Attending Physician: Bernabe Kim M.D. Primary Care Physician: Rocco Chamberlain M.D. DISCHARGE SUMMARY PERTINENT HISTORY AND HOSPITAL COURSE A 62-year-old man who has a history significant for a long hospitalization from May 27 to June 04, 2017, where he was admitted for cardiac arrest, underwent heart catheterization and stenting of the RCA. Ejection fraction ranged from 30% to 45%. He also had methicillin-sensitive Staphylococcus aureus pneumonia. His acute systolic congestive heart failure with low ejection fraction was aggressively diuresed during his hospitalization. The patient had been sent home with continued diuresis on Bumex and Zaroxolyn. He was re-admitted with an episode of atrial fibrillation with rapid ventricular rate. On admission, he was noted to be hyponatremic with a sodium of 129, a potassium of 2.5. His BUN was 61 and his creatinine was 2.3. The patient's diuretics were placed on hold. He was given mild hydration with normal saline at 75 mL/hr. His electrolytes subsequently improved with a sodium of 132, potassium 3.3 and the renal function improved to a creatinine of 1.5 and a BUN of 42. The patient is currently breathing comfortable. His vitals are stable. His lungs are clear. His heart sounds are regular. The patient converted to sinus rhythm during his hospitalization. Cardiology was consulted during admission along with nephrology consultation and pulmonary consultation. The patient's Zaroxolyn will be discontinued. The patient will be continued on Bumex but at a lower dose of 1 mg p.o. once daily. He will be discharged on anticoagulation with Coumadin with a followup with his primary care physician and storm sash maker along with a followup with his chemistry account manager. During his admission, he was continued on aspirin and Brilinta as well as Lipitor. He will also be continued on lisinopril. He will complete his remaining five days of Keflex for treatment of his MSSA pneumonia which has resolved. DISCHARGE DIAGNOSES 1. Episode of atrial fibrillation with rapid ventricular rate converted to sinus rhythm. 2. Coronary artery disease, status post stenting to the right RCA. 3. Methicillin-sensitive Staphylococcus aureus pneumonia. 4. Acute renal failure. 5. Hyponatremia from hypovolemia, secondary to diuretics. DISCHARGE INSTRUCTIONS 1. The patient is to follow up with primary care physician with lab tests, basic metabolic panel, and INR check on June 10, 2017. 2. Call to schedule followup appointment with his storm sash maker within two weeks. 3. Call to schedule appointment with chemistry account manager, Dr. Carter. 4. Call to followup with research physicist, Dr. Fred Rodriguez, for outpatient sleep study. Unit #: [id number] #: [id number] Patient: JANEL CAMACHO Dictated by... Debi Garcia TD: 06/10/2017 09:03 JOB #: [id number] DISCHARGE SUMMARY Page 1 of 1 X X DISCHARGE SUMMARY
--- NOTE | ~2017-06-06 | CO ---
Unit #: [id number] #: [id number] Patient: JANEL CAMACHO [id number] [address] [address] [id number] I MR#: [id number] NAME: JANEL CAMACHO ROOM: 314 Age: 62 Sex: M Admission Date: 06/06/2017 : 1955 Attending Physician: Bernabe Kim M.D. Primary Care Physician: Rocco Chamberlain M.D. Consultation Date: 06/06/2017 CONSULTATION REPORT REASON FOR CONSULTATION Renal insufficiency and I was asked to see the patient in consultation. HISTORY OF PRESENT ILLNESS Mr. Camacho is a 62-year-old gentleman who presented to the hospital again early this morning with weakness and fatigue. He was readmitted and noted to be in atrial fibrillation with rapid ventricular response. The patient had a long hospitalization from 05/27/2017 to 06/04/2017, where he during the hospitalization had a cardiac arrest and underwent a heart catheterization. He had stenting of the RCA times three and ejection fraction anywhere from 30%-45%, depending on the reading. He also had methicillin sensitive staph aureus pneumonia as well as respiratory failure during the hospitalization. On presentation he had a creatinine of 1.5 on 05/27/2017. It got as high as 2.2 on 06/01/2017 and was down to 1.8 when he was discharged on the first. It was 2.3 upon admission early this morning. He was noted to be sent home on Bumex as well as metolazone. He denies any chest pain now or shortness of breath. He denies any nausea, vomiting or diarrhea. PAST MEDICAL HISTORY 1. History of atherosclerotic coronary artery disease as mentioned above. 2. Hypertension. 3. Hyperlipidemia. 4. Obstructive sleep apnea. 5. History of chronic obstructive pulmonary disease. 6. History of prostate cancer, status post XRT in 10/2015. 7. History of MSSA pneumonia. SOCIAL HISTORY The patient is . He did smoke a pack per day and drink six or seven beers up until his hospitalization on 05/27/2017. FAMILY HISTORY Positive for kidney disease. ALLERGIES No known drug allergies. DISCHARGE MEDICATIONS 1. Bumex 2 mg b.i.d. 2. Zaroxolyn 5 mg daily. 3. Lipitor 40 mg daily. 4. Insulin, Brilinta daily. Unit #: [id number] #: [id number] Patient: JANEL CAMACHO 5. Aspirin daily. 6. Coreg. 7. Lisinopril 2.5 mg daily. 8. KCL 20 mEq b.i.d. 9. Keflex. REVIEW OF SYSTEMS As mentioned in the history of present illness, otherwise negative. He denies any nonsteroidal use. Admit urinary symptoms. No increased swelling. No skin rashes. PHYSICAL EXAMINATION VITALS: T-max 98.8, pulse 61-69, blood pressure 72-123/56-78. HEENT: Normocephalic, atraumatic. Pupils are equal, round and reactive to light. Extraocular muscles are intact and appears to be normal. Mouth is clear. No erythema. No exudate. NECK: Supple. No jugular venous distension or adenopathy. LUNGS: Clear bilaterally. No wheezes, rhonchi or rales. HEART: He appears to have a regular rhythm now without a rub. No S3 or S4. ABDOMEN: Bowel sounds positive. Nontender and soft. EXTREMITIES: He has no edema, clubbing or cyanosis. SKIN: No rashes. JOINTS: No joint pain. NEUROLOGIC: Appears intact motor and sensory grossly. : Deferred. DIAGNOSTIC STUDIES IMAGING: Chest x-ray was negative. He had a CT on 06/02/2017 without contrast that did show a 2.4 cm adrenal nodule. LABORATORY: Sodium 129, potassium 2.5, chloride 84, bicarb 29, BUN 61, creatinine 2.3, glucose 134, calcium 9.6, magnesium 2.0. White blood cell count 8,500, hemoglobin 15, platelets 262,000. Urinalysis showed specific gravity 1.01. No protein. No RBCs. No WBCs. TSH was 6.27, INR 1.1. ASSESSMENT/PLAN 1. Renal insufficiency. This gentleman had an increased creatinine when he came in on 05/27/2017. I do not have any previous creatinines prior to that. It worsened, but improved down to 1.8 and now worsening and he certainly could have underlying chronic kidney disease. I will try to get hold of some previous creatinines from primary office. Certainly, it is acute. His weight is down. He was sent home on metolazone. He has no edema on exam and I suspect he is probably volume depleted. Due to his decreased ejection fraction his diuretics are on hold, which I agree with. I am going to give him one liter of normal saline today and see how his renal function does. Will check a renal ultrasound and will also order SPEP in the morning. Depending on hospital his renal function does will determine his further workup and treatment. Again, he had no hematuria or proteinuria on his urinalysis. 2. Hypertension. Blood pressure is now on the low side. I certainly agree with medication changes. He does have adrenal adenoma on his old CT scan. I am going to go ahead and do an aldosterone and renin level to make sure he does not have hyper aldosterone state. Certainly would hold his metolazone and, of course, his potassium is Unit #: [id number] #: [id number] Patient: JANEL CAMACHO which can be seen with hyper aldosterone state, but is probably related to his metolazone. 3. Hyponatremia. The patient has low sodium, most likely again related to hypovolemia, hyponatremia, as well as his metolazone contributing to his hyponatremia. This should improve with holding diuretic and mild normal saline. Dictated by... Gay Carter M.D. ANA/gricelda TD: 06/07/2017 11:01 JOB #: [id number] CONSULTATION REPORT Page 1 of 1 X Dante Carter MD CONSULTATION REPORT
--- NOTE | ~2017-06-06 | CO ---
Unit #: [id number] #: [id number] Patient: JANEL CAMACHO [id number] [address] [address] [id number] I MR#: [id number] NAME: JANEL CAMACHO ROOM: 314 Age: 62 Sex: M Admission Date: 06/06/2017 : 1955 Attending Physician: Bernabe Kim M.D. Primary Care Physician: Rocco Chamberlain M.D. Consultation Date: 06/06/2017 CONSULTATION REPORT REASON FOR CONSULT Shortness of breath and AFib with RVR. HISTORY OF PRESENT ILLNESS This is a very pleasant, 62-year-old, male with past medical history significant for recent cardiac arrest who was just discharged from the hospital a few days ago. Patient was doing okay until this morning when his tried to get him out of bed and then he felt lightheadedness and he was very wobbly. Patient denied any chest pain or tachycardia. Upon EMS arrive, patient was found to be in AFib with RVR; however, patient converted to sinus rhythm for a short period of time and then went again back in AFib with RVR. His heart rate was up in the 150s. Patient was given, also, Cardizem; however, he became hypotensive, but that responded to normal saline boluses. Patient denied any change in his shortness of breath and there is no new cough or chest pain. PAST MEDICAL HISTORY 1. Coronary artery disease. 2. Hypertension. 3. Hyperlipidemia. 4. Obstructive sleep apnea. 5. COPD. 6. Prostate cancer. 7. Skin cancer. ALLERGIES No known drug allergies. HOME MEDICATIONS 1. Fish oil. 2. Aspirin. 3. Coreg. 4. Colace. 5. Brilinta. 6. Bumex. 7. Zaroxolyn. 8. Lipitor. 9. Levemir. 10. Keflex. 11. Lisinopril. 12. Potassium. Unit #: [id number] #: [id number] Patient: JANEL CAMACHO FAMILY HISTORY Coronary artery disease. SOCIAL HISTORY Patient lives with his . He was a heavy smoker, but he quit smoking last admission. He used to be also a drinker, but not anymore. No history of drug abuse. REVIEW OF SYSTEMS Twelve-point review of systems was obtained and was negative, except for what is mentioned in the HPI. PHYSICAL EXAMINATION GENERAL: The patient is very pleasant in acute distress at this point. HEENT: Atraumatic and normocephalic. PERRLA. EOMI. NECK: Supple. No JVD. No lymphadenopathy. CHEST: Decreased breath sounds at the bases. No wheezing. HEART: S1 and S2. No murmurs, gallops, or rubs. ABDOMEN: Soft and nontender. Bowel sounds are positive. No hepatosplenomegaly. EXTREMITIES: No edema or cyanosis. SKIN: No rashes. SPONSORSHIP MANAGER: Awake, alert, and oriented x3. No focal motor/sensory deficit. DIAGNOSTIC STUDIES LABORATORY: Creatinine 2.3, sodium 129, and potassium 3.3. White blood count 8.5. IMAGING TESTS: Chest x-ray showed subsegmental basilar atelectasis without ruby consolidation. ASSESSMENT 1. Acute hypoxic respiratory failure likely related to atrial fibrillation with RVR. 2. Atrial fibrillation with RVR. 3. Chronic obstructive pulmonary disease. 4. Diabetes. 5. Congestive heart failure. 6. Coronary artery disease. 7. Acute on chronic kidney disease. 8. Diabetes. 9. Obstructive sleep apnea. PLAN 1. Patient currently is on 5 liters nasal cannula, which we will titrate down as tolerated. This is likely related to AFib with RVR. 2. Continue patient on bronchodilator and we may have to hold IV albuterol to avoid tachycardia. 3. Will continue patient on Cardizem and adjust per his heart rate. 4. Blood pressure and blood sugar control. 5. Will need to adjust his diuretics due to acute on chronic kidney failure. 6. DVT prophylaxis. I would like to thank you for allowing me to be part of this patient's care. Unit #: [id number] #: [id number] Patient: JANEL CAMACHO Dictated by... Debi Urbina TD: 06/07/2017 06:44 JOB #: [id number] CONSULTATION REPORT Page 1 of 1 X CHARLES SIMONS MD CONSULTATION REPORT
--- NOTE | ~2017-06-06 | HP ---
Unit #: [id number] #: [id number] Patient: JANEL CAMACHO [id number] [address] [place], [place] [address] [id number] I MR#: [id number] NAME: JANEL CAMACHO ROOM: 314 Age: 62 Sex: M Admission Date: 06/06/2017 : 1955 Attending Physician: India Lopez M.D. Primary Care Physician: Rocco Chamberlain M.D. HISTORY AND PHYSICAL CHIEF COMPLAINT A-fib with RVR, acute on chronic kidney injury, and hypokalemia. HISTORY This pleasant 62-year-old male, recently admitted for a witnessed D-fib cardiac arrest on 05/27/2017, with history of hypertension, obstructive sleep apnea, is readmitted for A-fib and RVR. The patient was initially admitted to this facility 05/27 through 06/04/2017 for a witnessed V-fib cardiac arrest. He received bystander's CPR and multiple shocks in the field. He was brought to this emergency department where he was placed on hypothermia protocol. Did develop acute kidney injury, MSSA pneumonia. He had a cardiac catheterization performed about six days ago and I am told that PCI and stent x2 of the RCA was performed along with [employer] of previous stents. He went home two days ago feeling improved with a creatinine of 1.8. Early this morning, he was getting up, felt very weak, had a possible near syncopal episode. EMS was called and the patient was found to be in A-fib with RVR. He initially converted to a sinus rhythm briefly per his , and then when he was brought to this emergency department he was again in A-fib with RVR, heart rates about 156. The patient was give 5 mg of IV Cardizem, and was started on a 5 mg/hour drip. He did become hypotensive and received a 500 mL bolus of saline. He currently is in a normal sinus rhythm, rate 60. Labs are notable for acute on chronic kidney injury along with a potassium of 2.5. Therefore, the patient received 60 mEq of potassium, currently is feeling improved. Denies chest pain or shortness of breath with the above. PAST MEDICAL HISTORY 1. CAD with previous PCI and stent x2 in the remote past. The patient was admitted 05/27 through 06/04/2017 for a witnessed V-fib arrest requiring multiple shocks in the field. He was obviously intubated, did develop MSSA pneumonia, along with acute kidney injury. Had further PCI and stents of the RCA and, per the , PTCA of his previous two stents. Unfortunately, the cardiac catheterization report has not been transcribed, and I am unsure of his ejection fraction. 2. Essential hypertension. 3. Hyperlipidemia. 4. Obstructive sleep apnea. 5. COPD. 6. Prostate cancer, status post XRT which completed 10/2016. 7. Skin cancer removed. ALLERGIES Unit #: [id number] #: [id number] Patient: JANEL CAMACHO No known drug allergies. HOME MEDICATIONS 1. Vitamin D 1000 units daily. 2. Fish oil daily. 3. Aspirin 81 mg daily. 4. P.r.n. Tylenol. 5. Coreg 6.25 mg b.i.d. 6. Colace. 7. Nitroglycerin p.r.n. chest pain. 8. Brilinta 90 mg b.i.d. 9. Bumex 2 mg b.i.d. 10. Zaroxolyn 5 mg daily. 11. Lipitor 40 mg q. h.s. 12. Levemir 5 units subcu daily. 13. Keflex 500 mg b.i.d. 14. Lisinopril 2.5 mg daily. 15. Potassium 20 mEq b.i.d. FAMILY HISTORY CAD. SOCIAL HISTORY The patient lives with his . He stopped smoking two weeks ago. No longer drinks alcohol. REVIEW OF SYSTEMS Notable for some weakness, CAD, hypertension, hyperlipidemia, obstructive sleep apnea, arrhythmia, COPD, prostate cancer, skin cancer. All other systems were reviewed and are otherwise negative. PHYSICAL EXAMINATION GENERAL APPEARANCE: Pleasant 62-year-old male, currently in no acute distress. VITAL SIGNS: Temperature 98.8, pulse was 156 but now is 63, initial blood pressure 105/66, current blood pressure is 85/57, O2 saturation was 99% on 2 L of oxygen. HEENT: Eyes PERRLA. Extraocular muscles are intact. Pharynx is benign. NECK: Supple without adenopathy or thyromegaly. No JVD is noted. CHEST: Clear. CARDIAC: Normal S1 and S2 without definite murmur. ABDOMEN: Bowel sounds are present. No hepatosplenomegaly, tenderness or masses. EXTREMITIES: Without edema. Pedal pulses are present. NEUROLOGIC EXAM: The patient is awake, alert, oriented. His cranial nerves are intact. He has equal strength throughout. DIAGNOSTIC STUDIES LABORATORY: Hematocrit is 44.2, normal white count and platelet count. Initial troponin 0.18, second troponin is 0.11. Coags are normal. SMA-12 - glucose 134, BUN 61, creatinine 2.3, up from a BUN of 33, creatinine of 1.8 two days ago. Sodium 129, potassium 2.5, chloride is 84. Urinalysis - specific gravity 1.01, completely benign appearing sediment. CARDIOVASCULAR: Initial EKG showed A-fib, RVR, rate [address] wave abnormalities noted laterally. Unit #: [id number] #: [id number] Patient: JANEL CAMACHO Current EKG shows a normal sinus rhythm, rate 65, somewhat prolonged QT interval. IMAGING: Chest x-ray - atelectasis. ASSESSMENT 1. A-fib with RVR which may, in part, be related to hypokalemia. 2. Hypokalemia on diuretics. 3. Acute on chronic kidney disease which is likely, in part, prerenal as the patient has benign sediment: I wonder if patient is over-diuresed. 4. Recent V-fib arrest with DC: Patient is status post PCI and stents. Ejection fraction is unknown as the cardiac catheterization report has not yet been transcribed. 5. Mild hyperglycemia. 6. Obstructive sleep apnea. 7. Hyperlipidemia. 8. History of hypertension. 9. Status post XRT for prostate cancer. PLANS 1. Replace potassium and check magnesium. 2. Hold diuretics and lisinopril given low blood pressure until seen by cardiology. Patient may not need two diuretics. 3. Serial cardiac enzymes. 4. Normal saline bolus in ER. 5. Decrease Cardizem drip for now. 6. DVT prophylaxis. 7. Cardiology consultation. 8. Check postvoid residual and repeat labs in a few hours. Dictated by India Lopez M.D. STIVEN/alistair TD: 06/06/2017 06:16 JOB #: [id number] HISTORY AND PHYSICAL Page 1 of 1 X India Lopez MD X HISTORY AND PHYSICAL
--- NOTE | ~2017-06-06 | EKG ---
PATIENT: JANEL CAMACHO UNIT #: [id number] Ventricular Rate: 131 BPM Atrial Rate: 468 BPM QRS Duration: 98 ms Q-T Interval: 358 ms QTC Calculation(Bezet): 528 ms Calculated R [place]: -8 degrees Calculated T [place]: 35 degrees Diagnosis Line: Atrial fibrillation with rapid ventricular Diagnosis Line: response Diagnosis Line: Marked ST abnormality, possible inferior Diagnosis Line: subendocardial injury Diagnosis Line: Abnormal ECG Diagnosis Line: No previous ECGs available Diagnosis Line: Confirmed by IKE HAQUE MD ([id number]) on Diagnosis Line: 06/07/2017 7:14:27 AM INTERPRETING MD: SHABNAM LAURA
--- NOTE | ~2017-06-06 | DS ---
Unit #: [id number] #: [id number] Patient: JANEL CAMACHO [id number] [address] [address] [id number] I MR#: [id number] NAME: JANEL CAMACHO ROOM: 314 Age: Sex: M Admission Date: 06/06/2017 : 1955 Discharge Date: 06/07/2017 Attending Physician: Bernabe Kim M.D. Primary Care Physician: Rocco Chamberlain M.D. DISCHARGE SUMMARY ADDENDUM DISCHARGE MEDICATION LIST 1. Mellette-3 fish oil 300 mg p.o. daily. 2. Coreg 6.25 mg tab p.o. b.i.d. 3. Colace 100 mg p.o. b.i.d. 4. Keflex 500 mg p.o. b.i.d. for five days. 5. Bumex 2 mg. Take half a tablet p.o. once daily. 6. Lipitor 40 mg p.o. at bedtime. 7. Lisinopril 2.5 mg p.o. daily. 8. Aspirin 81 mg p.o. daily. 9. Brilinta 90 mg tab one p.o. b.i.d. 10. Potassium chloride 20 mEq p.o. once daily. 11. Nitroglycerin 0.4 mg sublingual p.r.n. for chest discomfort. 12. Vitamin D 1,000 units p.o. daily. 13. Coumadin 1 mg tab one p.o. daily. Dictated by... Debi Garcia/karla TD: 06/10/2017 09:05 JOB #: [id number] DISCHARGE SUMMARY Page 1 of 1 X X DISCHARGE SUMMARY
--- NOTE | ~2017-06-06 | US77 ---
[facility] A Service of [facility] RADIOLOGY TEXT RESULTS PATIENT: JANEL CAMACHO LOCATION: [facility] 314-01 : [birth year] UNIT #: [id number] AGE: [address]: YASEMIN LEMUS V SEX: M ORDER DR: [id number] [facility] [address]. [place], [place] [address] [id number] I MR#: [id number] Acc #: [id number] NAME: JANEL CAMACHO : 1955 SEX: M STUDY DATE/TIME: 06/06/2017 13:09 UNIT: [address] ROOM: [facility] STUDY DESCRIPTION: US Kidney Bilateral Complete Attending Physician: Yasemin Lemus M.D. Ordering Physician: Gay Carter M.D. Primary Care Physician: Rocco Chamberlain M.D. MEDICAL IMAGING REPORT This report is preliminary unless electronic signature is present EXAM Renal ultrasound 06/06/2017 HISTORY Abnormal renal function tests. Acute renal insufficiency, elevated BUN of 61, elevated creatinine of 2.3. Abnormally low GFR of 28.9 today. Hypertension and diabetes. FINDINGS The right kidney measures 11.2 cm while the left kidney measures 11.3 cm in longitudinal dimensions. There is no evidence of hydronephrosis or nephrolithiasis. No cystic or solid mass lesions were seen on either kidney and there is normal renal cortical echogenicity. Images of the bladder are normal. IMPRESSION Negative renal ultrasound. Dictated by... Roque Maldonado M.D. THIS IS AN ELECTRONICALLY VERIFIED REPORT Roque Maldonado M.D. at 06/07/2017 10:19 AM ELLA/neva TD: 06/06/2017 20:11 JOB #: [id number] MEDICAL IMAGING REPORT Page 1 of 1 COPY
--- NOTE | ~2017-06-06 | CR72 ---
[facility] A Service of [facility] RADIOLOGY TEXT RESULTS PATIENT: JANEL CAMACHO LOCATION: [facility] 314-01 : [birth year] UNIT #: [id number] AGE: [address]: MARIAHYASEMIN V SEX: M ORDER DR: [id number] [facility] [address] [place], [place] [address] [id number] E MR#: [id number] Acc #: [id number] NAME: JANEL CAMACHO : 1955 SEX: M STUDY DATE/TIME: 06/06/2017 2:31 UNIT: [facility] ROOM: STUDY DESCRIPTION: CR Chest Single View Portable Attending Physician: Carlos Lindsey M.D. Ordering Physician: Carlos Lindsey M.D. Primary Care Physician: Rocco Chamberlain M.D. MEDICAL IMAGING REPORT This report is preliminary unless electronic signature is present EXAM AP portable chest DATE: 06/06/2017 HISTORY Shortness of breath and weakness for 1 day. Discharged 2 days ago. History of atrial fibrillation, prostate and skin cancer. COMPARISON AP portable chest 06/01/2017. CT chest 06/02/2017. FINDINGS Low volume inspiration with probable mild bibasilar linear subsegmental atelectasis. No consolidation. No pleural effusion. No pneumothorax. Stable mild cardiac enlargement. No acute osseous abnormality. IMPRESSION Subsegmental bibasilar atelectasis without ruby consolidation. Dictated by... Irene Elliott M.D. THIS IS AN ELECTRONICALLY VERIFIED REPORT Irene Elliott M.D. at 06/06/2017 9:49 PM UNRULY/abisai TD: 06/06/2017 03:32 JOB #: [id number] MEDICAL IMAGING REPORT Page 1 of 1 COPY
--- NOTE | ~2017-06-06 | EKG ---
PATIENT: JANEL CAMACHO UNIT #: [id number] Ventricular Rate: 65 BPM Atrial Rate: 65 BPM P-R Interval: 148 ms QRS Duration: 100 ms Q-T Interval: 522 ms QTC Calculation(Bezet): 542 ms P [place]: 50 degrees Calculated R [place]: 11 degrees Calculated T [place]: 24 degrees Diagnosis Line: Normal sinus rhythm Diagnosis Line: Possible Left atrial enlargement Diagnosis Line: Nonspecific ST abnormality Diagnosis Line: Prolonged QT Diagnosis Line: Abnormal ECG Diagnosis Line: When compared with ECG of 03-JUN-2017 06:54, Diagnosis Line: TX interval has increased Diagnosis Line: Nonspecific T wave abnormality has replaced Diagnosis Line: inverted T waves in Inferior leads Diagnosis Line: Nonspecific T wave abnormality no longer evident Diagnosis Line: in Lateral leads Diagnosis Line: QT has lengthened Diagnosis Line: Confirmed by IKE HAQUE MD ([id number]) on Diagnosis Line: 06/07/2017 7:14:35 AM INTERPRETING MD: SHABNAM LAURA
[~2017-06-06 01:37] MED LIST changes: +ACETAMINOPHEN650 M4 PO; +ALTACE PO; +ASPIRIN81 M2 PO; +ASPIRIN81 MG PO; +BRILINTA90 MG PO; +BUMEX2 MG PO; +CO Q-10400 MG PO; +COLACE50 MG/5 M1 PO; +COREG6.25 MG PO; +CRESTOR PO; +FISH OIL300 MG PO; +FLOMAX0.4 M1 PO; +K-DUR20 ME1 PO; +KEFLEX500 M1 PO; +LEVEMIR FL100 UNIT/1 SUBQ; +LIPITOR40 MG PO; +LISINOPRIL2.5 MG PO; +METOLAZONE5 MG PO; +NITROGLYCERIN0.3 M1 SL; +RED YEAST RICE600 MG PO; +VALSARTAN-HCTZ1 EAC3 PO; +VITAMIN D1000 UNIT PO; +[UNRECOGNIZED DRUG - OTHER]
[2017-06-06 02:30] LABS: BASOPHIL% 0.4 % (0-2.5); DIFF IND NO; EOSINOPHIL# 0.2 X10e3 (0-0.7); EOSINOPHIL% 1.9 % (0.0-7.0); HEMATOCRIT 44.2 % (38.0-50.0); LYMPHOCYTE# 1.4 X10e3 (1.0-3.5); LYMPHOCYTE% 16.3 % (17.0-45.0); MEAN CELL VOLUME 92.4 FL (83-96); MEAN CORPUSCULAR HEMOGLOBIN 31.4 PG (28-34); MONOCYTE% 11.4 % (3.0-12.0); PLATELET COUNT 362 X10e3 (140-420); RED BLOOD COUNT 4.78 X10e (3.90-5.60); RED CELL DISTRIBUTION WIDTH 13.9 % (11.0-15.5); WHITE BLOOD COUNT 8.5 X10e3 (4.0-10.5)
[2017-06-06 02:33] LABS: POC - CKMB 4.3 ng/mL (0.0-7.9); POC - TROPONIN 0.18 ng/mL (<=0.05)
[2017-06-06 02:45] LABS: INR 1.1; PROTHROMBIN TIME (PATIENT) 11.5 SECONDS (10.0-11.7)
[2017-06-06 02:55] LABS: ALBUMIN SERUM 3.9 g/dL (3.5-5.0); BILIRUBIN, DIRECT 0.2 mg/dL (0.0-0.2); BILIRUBIN,TOTAL 1.2 mg/dL (0.2-2.0); BUN/CREATININE RATIO 26.52; CALCIUM SERUM 9.6 mg/dL (8.4-10.2); CREATININE SERUM 2.3 mg/dL (0.6-1.4); GLOM FILT RATE Estimated 28.9 mL/min (>60); PROTEIN TOTAL SERUM 7.9 g/dL (6.0-8.3)
[2017-06-06 02:57] LABS: POTASSIUM 2.5 mmol/L (3.5-5.1)
[2017-06-06 03:13] LABS: URINE SOURCE CLEAN CATCH
[2017-06-06 03:17] LABS: URINE APPEARANCE CLEAR; URINE BILIRUBIN NEG (NEG); URINE BLOOD NEG (NEG); URINE COLOR YELLOW; URINE GLUCOSE NORM (NORM); URINE KETONE NEG (NEG); URINE LEUKOCYTE ESTERASE NEG (NEG); URINE NITRATE NEG (NEG); URINE PH 6.5 (5-8); URINE PROTEIN NEG (NEG); URINE UROBILINOGEN NORM (NORM)
[2017-06-06 03:39] LABS: CULTURE INDICATED? NO
[2017-06-06 04:22] LABS: POC - CKMB 2.9 ng/mL (0.0-7.9); POC - TROPONIN 0.11 ng/mL (<=0.05)
[2017-06-06 12:17] LABS: %MB 3.9 % (0.0-4.0); MB 2.8 ng/ml
[2017-06-06 13:43] LABS: FREE T3 2.7 pg/mL (2.5-3.9)
[2017-06-06 13:45] LABS: FREE THYROXIN (T4) 1.12 ng/dL (0.58-1.64)
[2017-06-06 19:10] LABS: %MB 3.8 % (0.0-4.0); MB 2.5 ng/ml
[2017-06-07 00:14] LABS: CREATININE,RANDOM URINE 24 mg/dL
[2017-06-07 00:52] LABS: OSMOLALITY,URINE 213 mOsmo/kg (250-900)
[2017-06-07 06:07] LABS: BILIRUBIN,TOTAL 0.4 mg/dL (0.2-2.0); CALCIUM SERUM 8.8 mg/dL (8.4-10.2); CREATININE SERUM 1.5 mg/dL (0.6-1.4); GLOM FILT RATE Estimated 48.5 mL/min (>60); MAGNESIUM 1.8 mg/dL (1.6-3.0); PHOSPHOROUS 2.9 mg/dL (2.5-4.6); POTASSIUM 3.3 mmol/L (3.5-5.1); PROTEIN TOTAL SERUM 6.1 g/dL (6.0-8.3)
[2017-06-07] MEDS ORDERED: COUMADIN1 MG PO ×2 (17:03→17:09)
[2017-06-07] MEDS ORDERED: K-DUR20 ME1 PO (17:07)
[2017-06-07] MEDS ORDERED: KEFLEX500 M2 PO (17:07)
[2017-06-07] MEDS ORDERED: BUMEX PO (17:08)
[2017-06-11 15:49] LABS: ALDOSTERONE SERUM 2 ng/dL (***)
[2017-06-12 01:26] LABS: UPE RANDOM CREATININE 26.2 mg/dL (20-370); UPE RANDOM TOTAL PROTEIN (PNL) <4 mg/dL (5-25)
== END 2017-06-07 18:35 | disposition home health service (06) | DRG 308 ==
LOC: CED 01:37 → CEDOF 04:50 → C3A PCU 05:30 → CEDOF 05:43 → C3A PCU 05:43
PROVIDERS: Emergency Medicine; Internal Medicine; Internal Medicine Nephrology
DX: I48.91 Unspecified atrial fibrillation (principal); J96.01 Acute respiratory failure with hypoxia; I13.0 Hypertensive heart and chronic kidney disease with heart failure and stage 1 through stage 4 chronic kidney disease, or unspecified chronic kidney disease; I50.9 Heart failure, unspecified; N17.9 Acute kidney failure, unspecified; I95.9 Hypotension, unspecified; E87.1 Hypo-osmolality and hyponatremia; I25.10 Atherosclerotic heart disease of native coronary artery without angina pectoris; Z95.5 Presence of coronary angioplasty implant and graft; E87.6 Hypokalemia; E11.22 Type 2 diabetes mellitus with diabetic chronic kidney disease; N18.9 Chronic kidney disease, unspecified; Z87.891 Personal history of nicotine dependence; Z79.4 Long term (current) use of insulin; G47.33 Obstructive sleep apnea (adult) (pediatric); E78.5 Hyperlipidemia, unspecified; E11.65 Type 2 diabetes mellitus with hyperglycemia; J44.9 Chronic obstructive pulmonary disease, unspecified; Z82.49 Family history of ischemic heart disease and other diseases of the circulatory system; Z85.46 Personal history of malignant neoplasm of prostate; Z85.828 Personal history of other malignant neoplasm of skin
CPT/HCPCS: 36415; 71010; 76770; 80048; 80053; 80076; 81003; 82088; 82550; 82553; 82570; 82947; 83735; 83935; 84100; 84132; 84156; 84166; 84244; 84439; 84443; 84481; 84484; 85025; 85610; 85730; 86334; 89190; 93005; 96361; 96374; 97161; 99291; G8978-GP; G8979-GP; G8980-GP; J1650; J3475

== ENCOUNTER → 2017-06-24 | Outpatient (CLI) | payer OTHER ==
[~2017-06-24] MED LIST changes: +BUMEX PO; +COUMADIN1 MG PO; +KEFLEX500 M2 PO
[2017-06-24 11:19] LABS: BUN/CREATININE RATIO 9.23; CREATININE SERUM 1.3 mg/dL (0.6-1.4); GLOM FILT RATE Estimated 57.7 mL/min (>60)
[2017-06-24 11:25] LABS: POTASSIUM 5.9 mmol/L (3.5-5.1)
== END | disposition home or self-care (01) ==
LOC: CLAB 10:15
PROVIDERS: Nurse Practitioner
DX: I25.10 Atherosclerotic heart disease of native coronary artery without angina pectoris (principal); Z95.5 Presence of coronary angioplasty implant and graft
CPT/HCPCS: 36415; 80048; 83735

== ENCOUNTER → 2017-06-25 | Outpatient (CLI) | payer OTHER ==
[2017-06-25 12:14] LABS: BUN/CREATININE RATIO 12.72; CALCIUM SERUM 9.9 mg/dL (8.4-10.2); CREATININE SERUM 1.1 mg/dL (0.6-1.4); GLOM FILT RATE Estimated 70.6 mL/min (>60)
== END | disposition home or self-care (01) ==
LOC: CLAB 10:26
PROVIDERS: Internal Medicine Cardiovascular Disease
DX: I25.10 Atherosclerotic heart disease of native coronary artery without angina pectoris (principal); I10 Essential (primary) hypertension
CPT/HCPCS: 36415; 80048